=== PATIENT | male | born 1950 | race Caucasian/White ===

== ENCOUNTER 2018-03-16 03:17 | Inpatient (IN) | payer OTHER ==
--- NOTE | 2018-03-16 03:39 | PDOC ---
History of Present Illness - General Chief Complaint: Shortness of Breath Stated Complaint: SOB Time Seen by Provider: 03/16/18 03:31 History Source: Patient Exam Limitations: No Limitations - History of Present Illness Initial Comments: 03/16/18 03:39 This is a 67-year-old male who comes in complaining of 1 day of shortness of breath worse over the last several hours. Patient has a nonproductive cough but otherwise denies any chest pain or abdominal pain. Patient has history of atrial fibrillation. Patient denies history of smoking. Patient denies any fever or chills. Allergies: None Past Medical History: none Social history: Lives with family. No smoking. No alcohol. No illicit drugs. Surgical history: None General: No fevers or chills, no weakness, no weight loss HEENT: No change in vision. No sore throat,. No ear pain CardioVascular: no chest discomfort. No shortness of breath Respiratory:No cough, or wheezing, + shortness of breath Gastrointestinal: no nausea, vomiting, diarrhea or constipation, No rectal bleeding Genitourinary: No dysuria, hematuria, or frequency Musculoskeletal: No joint or muscle pain or swelling Neurologic: No headache, vertigo, dizziness or loss of consciousness Psychiatric: nor depression Skin: No rashes or easy bruising Endocrine: no increased thirst or abnormal weight change Allergic: no skin or latex allergy All other systems reviewed and normal Exam: General: Well-nourished well-developed individual, no acute distress HEENT: Throat: Normal, tonsils normal, no erythema or exudate Neck: Supple, no meningeal signs, no lymphadenopathy Eyes::Pupils equal reactive and round, extraocular motion intact Chest: Nontender to palpation Cardiac: S1-S2 normal, regular rate and rhythm, no murmurs rubs or gallops Respiratory: Lungs with rales bilateral all the way up, + use of accessory muscles with respiration Abdomen: Soft, nondistended, normal bowel sounds, there is no tenderness on palpation diffusely Extremities: Warm, dry, no cyanosis, clubbing, or edema Skin: No rashes Neuro: Alert and oriented x3, CN II - XII intact, nonfocal exam with normal strength, normal sensation, normal reflexes, normal gait, Psych: Normal mood and affect Assessment And plan: This is a 66-year-old male who comes in complaining of shortness of breath. Workup initiated including CBC, comp, cardiac enzymes, EKG , chest x-ray. EKG shows atrial fibrillation at a rate of [address]-T wave changes 03/16/18 04:47 Patient's chest x-ray shows moderate amount of congestive failure heart failure Patient given 40 mg of Lasix IV Patient will be admitted to an inpatient telemetry bed. 03/16/18 05:15 Patient For admission by the hospitalist service Dr. Queen be the admitting doctor 03/16/18 05:24 Past History - Past Medical History Allergies/Adverse Reactions: Allergies Allergy/AdvReac Type Severity Reaction Status Date / Time No Known Allergies Allergy Verified 03/16/18 03:19 Home Medications: Ambulatory Orders Apixaban [Eliquis -] 5 mg PO BID #0 tablet 02/17/13 Losartan Potassium [Cozaar -] 25 mg PO DAILY 09/21/15 Nebivolol HCl [Bystolic] 5 mg PO DAILY 03/16/18 Anemia: No Cardiac Disorders: Yes (AFIB) COPD: No DVT: Yes (R LEG 02/2006) HTN: Yes Hypercholesterolemia: Yes - Surgical History Orthopedic Surgery: Yes (RIGHT MINISCUS TEAR SX) - Suicide/Smoking/Psychosocial Hx Smoking History: Never smoked Have you smoked in the past 12 months: No Number of Cigarettes Smoked Daily: 0 Information on smoking cessation initiated: No Hx Alcohol Use: No Drug/Substance Use Hx: No Substance Use Type: Alcohol *Physical Exam - Vital Signs Last Vital Signs Temp Pulse Resp BP Pulse Ox 98.3 F 69 20 138/65 98 03/16/18 03:21 03/16/18 03:21 03/16/18 03:21 03/16/18 03:21 03/16/18 03:21 Moderate Sedation - Procedure Monitoring Vital Signs: Procedure Monitoring Vital Signs Temperature 98.3 F 03/16/18 03:21 Pulse Rate 69 03/16/18 03:21 Respiratory Rate 20 03/16/18 03:21 Blood Pressure 138/65 03/16/18 03:21 O2 Sat by Pulse Oximetry (%) 98 03/16/18 03:21 ED Treatment Course - LABORATORY CBC & Chemistry Diagram: 03/16/18 04:01 03/16/18 04:01 *DC/Admit/Observation/Transfer Diagnosis at time of Disposition: CHF (congestive heart failure) Qualifiers: Heart failure type: unspecified Heart failure chronicity: acute Qualified Code( s): I50.9 - Heart failure, unspecified - Discharge Dispostion Condition at time of disposition: Stable Decision to Admit order: Yes - Referrals Referrals: Abelardo Yepez MD [Primary Care Provider] - - Patient Instructions - Post Discharge Activity
[2018-03-16 04:22] LABS: BASO % 0.6 % (0-2.0); EOS % 0.3 % (0-4.5); HEMATOCRIT 37.4 % (35.4-49); HEMOGLOBIN 13.4 GM/dL (11.7-16.9); LYMPH % 15.1 % (8-40); MCH 36.1 pg (25.7-33.7); MCHC 35.7 g/dl (32.0-35.9); MEAN CELL VOLUME 101.1 fl (80-96); MONO % 12.7 % (3.8-10.2); NEUT % 71.3 % (42.8-82.8); PLATELET COUNT 147 K/MM3 (134-434); WHITE BLOOD COUNT 6.9 K/mm3 (4.0-10.0)
[2018-03-16 04:26] LABS: URINE APPEARANCE CLEAR; URINE BILIRUBIN NEGATIVE (<2.0 mg/dL); URINE COLOR AMBER; URINE GLUCOSE (UA) NEGATIVE (NEGATIVE); URINE KETONE TRACE (NEGATIVE); URINE LEUK ESTERASE NEGATIVE (NEGATIVE); URINE NITRITE NEGATIVE (NEGATIVE); URINE PROTEIN 2+ (NEGATIVE); URINE UROBILINOGEN 4.0 E.U/dl mg/dL (0.2-1.0)
[2018-03-16 04:40] LABS: CALCIUM OXALATE CRYSTALS RARE /hpf (NONE SEEN); EPI CELLS RARE /HPF (FEW); URINE BACTERIA FEW /hpf (NONE SEEN); URINE HYALINE CAST 1 /lpf; URINE MUCUS FEW
[2018-03-16] MEDS ORDERED: FUROSEMIDE 40 MG/4 ML INJECTABLE VIAL IVPUSH ONE ×3 (04:46→14:54)
[2018-03-16] MEDS ORDERED: FUROSEMIDE 40 MG/4 ML INJECTABLE VIAL ONE (04:49)
[2018-03-16 04:58] LABS: CREATININE 1.2 mg/dL (0.55-1.3)
[2018-03-16 04:59] LABS: ALBUMIN 3.4 g/dl (3.4-5.0); CO2 27 mmol/L (21-32)
[2018-03-16 05:07] LABS: INR 1.84 (0.83-1.09); PROTHROMBIN TIME (PATIENT) 21.8 SEC (9.7-13.0)
[2018-03-16 05:12] LABS: ALK PHOS 77 U/L (45-117); ANION GAP 9 MMOL/L (8-16); BILIRUBIN,TOTAL 1.8 mg/dL (0.2-1); BLOOD UREA NITROGEN 14 mg/dL (7-18); CHLORIDE 94 mmol/L (98-107); GLUCOSE,RANDOM 126 mg/dL (74-106); POTASSIUM 4.1 mmol/L (3.5-5.1); SGOT/AST 39 U/L (15-37); SGPT/ALT 39 U/L (13-61); SODIUM 131 mmol/L (136-145); TOT PROT 6.4 g/dl (6.4-8.2)
[2018-03-16 06:29] VITALS: BMI 31.8
--- NOTE | 2018-03-16 08:19 | HP ---
CHIEF COMPLAINT: "Not in tune with my body" PCP: Abelardo Yepez HISTORY OF PRESENT ILLNESS: This is a 67 year old male with PMHx of paroxysmal a.fib, HTN, DVT right leg, nonobstructive CAD, nonischemic cardiomyopathy, who presented to the ED with 2 days of increased shortness of breath. The patient reports he went to an urgent care yesterday and they gave him a medication that made him feel better (cannot recall the medication name). He reports he then began to have worsening shortness of breath and decided to come to the hospital. The patient is also reporting cough with brown sputum x2 weeks as well as wheezing during that time period. He denies any chest pain, but is reporting chills. ER course was notable for: (1) Temp 98.3, pulse 69, BP 138/63, resp 20, O2 98% (2) Chest X-ray with a larger heart, increased fullness of the right hilum with some congestive changes and possible early right perihilar infiltrate. Fluid in the horizontal fissure (3) Na 131, total bili 1.8 (4) BNP 3519 (5) Total bili 1.8, INR 1.84 Recent Travel: denies PAST MEDICAL HISTORY: as above Social History: Smoking: smoked 40 years ago Alcohol: drinks 1 beer/glass of wine per night Drugs: denies Family History: Allergies No Known Allergies Allergy (Verified 03/16/18 03:19) HOME MEDICATIONS: Home Medications Medication Instructions Recorded Apixaban [Eliquis -] 5 mg PO BID #0 tablet 02/17/13 Losartan Potassium [Cozaar -] 25 mg PO DAILY 09/21/15 Nebivolol HCl [Bystolic] 5 mg PO DAILY 03/16/18 REVIEW OF SYSTEMS CONSTITUTIONAL: + chills x2 days Absent: fever, diaphoresis, generalized weakness, malaise, loss of appetite, weight change HEENT: Absent: rhinorrhea, nasal congestion, throat pain, throat swelling, difficulty swallowing, mouth swelling, ear pain, eye pain, visual changes CARDIOVASCULAR: Absent: chest pain, syncope, palpitations, irregular heart rate, lightheadedness , peripheral edema RESPIRATORY: + cough with brown sputum x2 weeks. Increase in shortness of breath for 2 days. Absent: dyspnea with exertion, orthopnea, wheezing, stridor, hemoptysis GASTROINTESTINAL: Absent: abdominal pain, abdominal distension, nausea, vomiting, diarrhea, constipation, melena, hematochezia GENITOURINARY: Absent: dysuria, frequency, urgency, hesitancy, hematuria, flank pain, genital pain MUSCULOSKELETAL: Absent: myalgia, arthralgia, joint swelling, back pain, neck pain SKIN: Absent: rash, itching, pallor HEMATOLOGIC/IMMUNOLOGIC: Absent: easy bleeding, easy bruising, lymphadenopathy, frequent infections ENDOCRINE: Absent: unexplained weight gain, unexplained weight loss, heat intolerance, cold intolerance NEUROLOGIC: Absent: headache, focal weakness or paresthesias, dizziness, unsteady gait, seizure, mental status changes, bladder or bowel incontinence PSYCHIATRIC: Absent: anxiety, depression, suicidal or homicidal ideation, hallucinations. PHYSICAL EXAMINATION Vital Signs - 24 hr 03/16/18 03/16/18 03/16/18 03:21 03:57 03:59 Temperature 98.3 F Pulse Rate 69 104 H Pulse Rate [ 104 H Left] Respiratory 20 22 H Rate Blood Pressure 138/65 Blood Pressure 136/81 [Right] O2 Sat by Pulse 98 98 98 Oximetry (%) 03/16/18 03/16/18 04:56 06:13 Temperature 100.6 F H Pulse Rate 93 H Pulse Rate [ 103 H Left] Respiratory 26 H 22 H Rate Blood Pressure 140/73 Blood Pressure 132/74 [Right] O2 Sat by Pulse 98 98 Oximetry (%) GENERAL: Awake, alert, and fully oriented, in no acute distress. HEAD: Normal with no signs of trauma. EYES: Pupils equal, round and reactive to light, extraocular movements intact, sclera anicteric, conjunctiva clear. No lid lag. EARS, NOSE, THROAT: Ears normal, nares patent, oropharynx clear without exudates. Moist mucous membranes. NECK: Normal range of motion, supple without lymphadenopathy, JVD, or masses. LUNGS: B/l wheezing. HEART: Regular rate and rhythm, normal S1 and S2 ABDOMEN: Soft, nontender, not distended, normoactive bowel sounds, no guarding, no rebound, no masses. No hepatomegaly or splenomegaly. MUSCULOSKELETAL: Normal range of motion at all joints. No bony deformities or tenderness. No CVA tenderness. UPPER EXTREMITIES: 2+ pulses, warm, well-perfused. No cyanosis. No clubbing. No peripheral edema. LOWER EXTREMITIES: 2+ pulses, warm, well-perfused. No calf tenderness. No peripheral edema. NEUROLOGICAL: Cranial nerves II-XII intact. Normal speech. Normal gait. PSYCHIATRIC: Cooperative. Good eye contact. Appropriate mood and affect. SKIN: Warm, dry, normal turgor, no rashes or lesions noted, normal capillary refill. Laboratory Results - last 24 hr 03/16/18 03/16/18 03/16/18 03:40 03:45 03:45 WBC RBC Hgb Hct MCV MCH MCHC RDW Plt Count MPV Absolute Neuts (auto) Neutrophils % Lymphocytes % Monocytes % Eosinophils % Basophils % Nucleated RBC % PT with INR INR Sodium Potassium Chloride Carbon Dioxide Anion Gap BUN Creatinine Creat Clearance w eGFR Random Glucose Calcium Total Bilirubin AST ALT Alkaline Phosphatase Creatine Kinase Cancelled Creatine Kinase Index CK-MB (CK-2) Troponin I 0.02 Cancelled B-Natriuretic Peptide Total Protein Albumin Urine Color Urine Appearance Urine pH Ur Specific Bison Urine Protein Urine Glucose (UA) Urine Ketones Urine Blood Urine Nitrite Urine Bilirubin Urine Urobilinogen Ur Leukocyte Esterase Urine WBC (Auto) Urine RBC (Auto) Ur Epithelial Cells Calcium Oxalate Crystal Urine Bacteria Hyaline Casts Urine Mucus 03/16/18 03/16/18 03/16/18 03:45 04:01 04:01 WBC 6.9 RBC 3.70 L Hgb 13.4 Hct 37.4 MCV 101.1 H MCH 36.1 H MCHC 35.7 RDW 14.0 Plt Count 147 MPV 10.0 Absolute Neuts (auto) 4.9 Neutrophils % 71.3 Lymphocytes % 15.1 Monocytes % 12.7 H Eosinophils % 0.3 Basophils % 0.6 Nucleated RBC % 0 PT with INR INR Sodium 131 L Potassium 4.1 Chloride 94 L Carbon Dioxide 27 Anion Gap 9 BUN 14 Creatinine 1.2 Creat Clearance w eGFR > 60 Random Glucose 126 H Calcium 8.0 L Total Bilirubin 1.8 H AST 39 H ALT 39 Alkaline Phosphatase 77 Creatine Kinase 597 H Creatine Kinase Index 0.3 CK-MB (CK-2) 2.0 Troponin I < 0.02 B-Natriuretic Peptide Total Protein 6.4 Albumin 3.4 Urine Color Patricia Urine Appearance Clear Urine pH 6.0 Ur Specific Bison 1.023 Urine Protein 2+ H Urine Glucose (UA) Negative Urine Ketones Trace H Urine Blood 2+ H Urine Nitrite Negative Urine Bilirubin Negative Urine Urobilinogen 4.0 e.u/dl Ur Leukocyte Esterase Negative Urine WBC (Auto) 3 Urine RBC (Auto) 21 Ur Epithelial Cells Rare Calcium Oxalate Crystal Rare Urine Bacteria Few Hyaline Casts 1 Urine Mucus Few 03/16/18 03/16/18 04:01 04:01 WBC RBC Hgb Hct MCV MCH MCHC RDW Plt Count MPV Absolute Neuts (auto) Neutrophils % Lymphocytes % Monocytes % Eosinophils % Basophils % Nucleated RBC % PT with INR 21.80 H INR 1.84 H Sodium Potassium Chloride Carbon Dioxide Anion Gap BUN Creatinine Creat Clearance w eGFR Random Glucose Calcium Total Bilirubin AST ALT Alkaline Phosphatase Creatine Kinase Creatine Kinase Index CK-MB (CK-2) Troponin I B-Natriuretic Peptide 3519.6 H Total Protein Albumin Urine Color Urine Appearance Urine pH Ur Specific Bison Urine Protein Urine Glucose (UA) Urine Ketones Urine Blood Urine Nitrite Urine Bilirubin Urine Urobilinogen Ur Leukocyte Esterase Urine WBC (Auto) Urine RBC (Auto) Ur Epithelial Cells Calcium Oxalate Crystal Urine Bacteria Hyaline Casts Urine Mucus Assessment: This is a 67 year old male with PMHx of paroxysmal a.fib, HTN, DVT right leg, nonobstructive CAD, nonischemic cardiomyopathy, who presented to the ED with 2 days of increased shortness of breath. Plan: 1) Acute COPD exacerbation - Started on Solu-medrol. Given 125mg now. Will continue Solu-medrol 40mg q8h IVP - O2 via NC prn - Duonebs prn 2) Community acquired pneumonia - Chest X-ray with possible early perihilar infiltrate - Given the patient had low grade temp 100.8 this morning, will start Ceftriaxone and Azithromycin - F/u sputum culture - F/u urine legionella Ag - F/u blood cultures - Monitor for further fevers 3) Acute on chronic LV systolic failure with nonischemic cardiomyopathy - Given two doses of lasix today - Discussed with Dr. Quintero, will hold off on giving more lasix for now - Increased Bystolic to 10mg po daily 4) Elevated total bili - Also with elevated INR 1.84 - Patient reports drinking alcohol daily. F/u liver ultrasound to evaluate for cirrhosis - Trend LFTs - Monitor for s&s of withdrawal. No evidence of acute withdrawal now 5) Paroxysmal A.fib - Continue Eliquis - Increased Bystolic for better heart rate control 6) HTN - Continue Cozaar 7) F/E/N: - Hyponatremia: continue to trend - Sodium controlled diet - Monitor electrolytes 8) Prophylaxis: - Continue Eliquis 9) Dispo: - Requires continued inpatient care CODE STATUS: FULL CODE Visit type - Emergency Visit Emergency Visit: Yes ED Registration Date: 03/16/18 Care time: The patient presented to the Emergency Department on the above date and was hospitalized for further evaluation of their emergent condition. - New Patient This patient is new to me today: Yes Date on this admission: 03/16/18 - Critical Care Critical Care patient: No
[2018-03-16] MEDS ORDERED: CEFTRIAXONE 1 GM in DEXTROSE 5%-WATER - 50 ML IVPB ONE (08:30)
[2018-03-16] MEDS ORDERED: CEFTRIAXONE 1 G/50 ML PREMIX 50 ML IVPB ONE (08:30)
[2018-03-16] MEDS ORDERED: AZITHROMYCIN IVPB 500 MG/250 ML BAG IVPB ONE (08:45)
[2018-03-16] MEDS: LOSARTAN POTASSIUM 25 MG TABLET PO SCH (09:03)
[2018-03-16] MEDS: APIXABAN 5 MG TABLET PO SCH ×2 (09:03→21:27)
[2018-03-16] MEDS ORDERED: NEBIVOLOL 5 MG TABLET (FP) PO SCH (10:00)
[2018-03-16 10:22] LABS: CHOLESTEROL 120 mg/dl; HDL CHOLESTEROL 46 mg/dl (29-89); LDL CHOLESTEROL (ONLY DFH) 63 mg/dl (0-100); TRIGLYCERIDES 55 mg/dl (35-160)
[2018-03-16] MEDS: ALBUTEROL SO4 2.5/IPRATROPIUM 0.5 INH SOL 3 ML VIAL.NEB. NEB PRN ×2 (10:25→19:04)
[2018-03-16] MEDS ORDERED: methylPREDNISolone NA SUCC 125 MG/2 ML VIAL IVPB ONE (13:30)
--- NOTE | 2018-03-16 13:34 | CON.CARD ---
Consult Consult Specialty:: Cardiology Referred by:: Hospitalist Medicine/Abelardo Yepez MD Reason for Consultation:: Afib and diastolic failure - History of Present Illness Chief Complaint: Dyspnea, cough, wheeze History of Present Illness: 67 yo M with a history of paroxysmal Afib on Eliquis [id number], nonobstructive CAD, nonischemic cardiomyopathy with improved LV fxn (mild) presented to the ER with progressive dypnea, orthopnea, cough productive of yellow-brown sputum, wheeze without chest pain, near or true syncope, palpitations, PND or LE edema, found in rapid afib, asymptomatic. Admits to salt intake, denies medication noncompliance or NSAID use. PMH: Paroxymal Afib PSH: Bilateral hip replacement, Right knee replacement Meds: Carvedilol 6.25 qd, Losartan 25 qd, Eliquis 5 bid ALL: NKDA Social: denies drug or cigarette use, does use alcohol - History Source History Provided By: Patient Limitations to Obtaining History: No Limitations - Past Medical History Cardio/Vascular: Yes: AFIB, HTN - Alcohol/Substance Use Hx Alcohol Use: Yes - Smoking History Smoking history: Never smoked Have you smoked in the past 12 months: No Aproximately how many cigarettes per day: 0 Home Medications - Allergies Allergies/Adverse Reactions: Allergies Allergy/AdvReac Type Severity Reaction Status Date / Time No Known Allergies Allergy Verified 03/16/18 03:19 - Home Medications Home Medications: Ambulatory Orders Apixaban [Eliquis -] 5 mg PO BID #0 tablet 02/17/13 Losartan Potassium [Cozaar -] 25 mg PO DAILY 09/21/15 Allopurinol [Zyloprim -] 600 mg PO BID 03/16/18 Nebivolol HCl [Bystolic] 5 mg PO DAILY 03/16/18 Review of Systems - Review of Systems Respiratory: reports: Cough, SOB, Wheezing Vital Signs: Vital Signs Temperature 98.7 F 03/16/18 13:15 Pulse Rate 99 H 03/16/18 13:15 Respiratory Rate 22 H 03/16/18 13:15 Blood Pressure 136/61 03/16/18 13:15 O2 Sat by Pulse Oximetry (%) 96 03/16/18 09:19 Constitutional: Yes: No Distress, Calm Neck: Yes: Supple Respiratory: Yes: Regular, Diminished, On Nasal O2 Gastrointestinal: Yes: Normal Bowel Sounds, Soft, Abdomen, Obese Cardiovascular: Yes: Tachycardia, Pulse Irregular JVD: No Carotid Bruit: No Heart Sounds: Yes: S1, S2 Murmur: Yes: Systolic Murmur, Grade 1 Edema: No - Other Data Labs, Other Data: CBC, BMP 03/16/18 04:01 03/16/18 04:01 INR, PTT INR 1.84 (0.83-1.09) H 03/16/18 04:01 Troponin, BNP 03/16/18 03/16/18 03/16/18 03:40 03:45 04:01 Troponin I 0.02 Cancelled < 0.02 B-Natriuretic Peptide 03/16/18 03/16/18 04:01 10:00 Troponin I 0.03 B-Natriuretic Peptide 3519.6 H Troponin, BNP 03/16/18 03/16/18 03/16/18 03:40 03:45 04:01 Troponin I 0.02 Cancelled < 0.02 B-Natriuretic Peptide 03/16/18 03/16/18 04:01 10:00 Troponin I 0.03 B-Natriuretic Peptide 3519.6 H Afib @ 114 Ejection Fraction %: LVEF > or = 40 % Imaging - Results Chest X-ray: Report Reviewed (Congestion with right hilar fullness, ? infiltrate ) Problem List - Problems (1) COPD (chronic obstructive pulmonary disease) Code(s): J44.9 - CHRONIC OBSTRUCTIVE PULMONARY DISEASE, UNSPECIFIED Qualifiers: COPD type: COPD with acute exacerbation Qualified Code(s): J44.1 - Chronic obstructive pulmonary disease with (acute) exacerbation (2) CHF (congestive heart failure) Code(s): I50.9 - HEART FAILURE, UNSPECIFIED Qualifiers: Heart failure type: combined systolic and diastolic Heart failure chronicity: acute on chronic Qualified Code(s): I50.43 - Acute on chronic combined systolic (congestive) and diastolic (congestive) heart failure (3) Atrial fibrillation with RVR Code(s): I48.91 - UNSPECIFIED ATRIAL FIBRILLATION (4) Hypertension Code(s): I10 - ESSENTIAL (PRIMARY) HYPERTENSION Qualifiers: Hypertension type: essential hypertension Qualified Code(s): I10 - Essential (primary) hypertension Assessment/Plan 1. Recurrent paroxysmal atrial fibrillation with rapid ventricular response [id number] on NOAC 2. Acute on chronic LV systolic failure (mild) with nonischemic cardiomyopathy 3. Non-obstructive CAD, angina pectoris 4. AE COPD +/- PNA 5. HTN PLAN: 1. Increase Bystolic 10 qd for rate-control, continue losartan 25 qd, Eliquis 5 bid 2. BD, steroids, empiric abx course, FIO2 to maintain saO2 3. Thank you for consultative opportunity
[2018-03-16] MEDS: NEBIVOLOL 10 MG TABLET (FP) PO SCH (16:21)
[2018-03-16] MEDS: methylPREDNISolone NA SUCC 40 MG/1 ML VIAL IVPUSH SCH (19:50)
[2018-03-16] MEDS: guaiFENesin 200 MG/10 ML 10 ML UNIT-DOSE CUPS PO PRN (21:45)
[2018-03-17] MEDS: methylPREDNISolone NA SUCC 40 MG/1 ML VIAL IVPUSH SCH ×2 (01:00→09:14)
[2018-03-17 06:53] LABS: ALBUMIN 3.1 g/dl (3.4-5.0); ALK PHOS 77 U/L (45-117); ANION GAP 8 MMOL/L (8-16); BILIRUBIN,TOTAL 0.5 mg/dL (0.2-1); BLOOD UREA NITROGEN 28 mg/dL (7-18); CALCIUM 8.2 mg/dL (8.5-10.1); CHLORIDE 97 mmol/L (98-107); CO2 29 mmol/L (21-32); CREATININE 1.2 mg/dL (0.55-1.3); GLUCOSE,RANDOM 168 mg/dL (74-106); MAGNESIUM 2.7 mg/dL (1.8-2.4); SGOT/AST 35 U/L (15-37); SGPT/ALT 44 U/L (13-61); SODIUM 135 mmol/L (136-145); TOT PROT 6.4 g/dl (6.4-8.2)
--- NOTE | 2018-03-17 07:16 | EKG ---
Test Reason : Blood Pressure : / mmHG Vent. Rate : 114 BPM Atrial Rate : 110 BPM P-R Int : 000 ms QRS Dur : 092 ms QT Int : 338 ms P-R-T Axes : 000 019 024 degrees QTc Int : 465 ms ATRIAL FIBRILLATION WITH RAPID VENTRICULAR RESPONSE ABNORMAL ECG WHEN COMPARED WITH ECG OF 22-SEP-2015 09:16, ATRIAL FIBRILLATION HAS REPLACED SINUS RHYTHM VENT. RATE HAS INCREASED BY 56 BPM Confirmed by FLORA NEGRETE, MULU ([id number]) on 03/17/2018 7:16:33 AM Referred By: MD JAQUEZ Confirmed By:MULU HINSE MD
--- NOTE | 2018-03-17 08:09 | PN ---
Physical Exam: SUBJECTIVE: Patient seen and examined sitting on edge of bed. Denies palpitaitons. SOB is improved. Has periods of coughing. Devoted to fitness, spinning, weight lifting. Takes powder supplements. Denies steroid use. OBJECTIVE: Vital Signs Period Temp Pulse Resp BP Sys/Baron Pulse Ox Last 24 Hr 97.6 F-98.7 F 88-106 19-22 104-136/51-67 93-97 GENERAL: The patient is awake, alert, and fully oriented, in no acute distress. Large, developed upper chest and arms. LUNGS: Breath sounds equal, clear to auscultation bilaterally, no wheezes, no crackles, no accessory muscle use. HEART: Regular rate and rhythm, S1, S2 without murmur, rub or gallop. ABDOMEN: Soft, nontender, nondistended EXTREMITIES: 2+ pulses, warm, well-perfused, no edema. NEUROLOGICAL: Cranial nerves II through XII grossly intact. Normal speech, steady gait Laboratory Results - last 24 hr 03/16/18 03/16/18 03/16/18 09:50 10:00 10:00 D-Dimer Sodium Potassium Chloride Carbon Dioxide Anion Gap BUN Creatinine Creat Clearance w eGFR Random Glucose Hemoglobin A1c % 5.8 Calcium Magnesium 1.9 Total Bilirubin AST ALT Alkaline Phosphatase Troponin I Total Protein Albumin Triglycerides 55 D Cholesterol 120 Total LDL Cholesterol 63 HDL Cholesterol 46 03/16/18 03/16/18 03/16/18 10:00 14:30 14:30 D-Dimer 1821 H Sodium Potassium Chloride Carbon Dioxide Anion Gap BUN Creatinine Creat Clearance w eGFR Random Glucose Hemoglobin A1c % Calcium Magnesium Total Bilirubin AST ALT Alkaline Phosphatase Troponin I 0.03 0.03 Total Protein Albumin Triglycerides Cholesterol Total LDL Cholesterol HDL Cholesterol 03/17/18 05:30 D-Dimer Sodium 135 L Potassium 4.0 Chloride 97 L Carbon Dioxide 29 Anion Gap 8 BUN 28 H Creatinine 1.2 Creat Clearance w eGFR > 60 Random Glucose 168 H Hemoglobin A1c % Calcium 8.2 L Magnesium 2.7 H Total Bilirubin 0.5 AST 35 ALT 44 Alkaline Phosphatase 77 Troponin I Total Protein 6.4 Albumin 3.1 L Triglycerides Cholesterol Total LDL Cholesterol HDL Cholesterol Active Medications Generic Name Dose Route Start Last Admin Trade Name Freq PRN Reason Stop Dose Admin Albuterol/Ipratropium 1 amp 03/16/18 09:55 03/16/18 19:04 Duoneb - NEB 1 amp Q4H PRN Administration SHORTNESS OF BREATH Apixaban 5 mg 03/16/18 10:00 03/16/18 21:27 Eliquis - PO 5 mg BID IMELDA Administration Guaifenesin 10 ml 03/16/18 20:55 03/16/18 21:45 Robitussin - PO 10 ml Q6H PRN Administration COUGH Losartan Potassium 25 mg 03/16/18 10:00 03/16/18 09:03 Cozaar - PO 25 mg DAILY IMELDA Administration Methylprednisolone Sodium Succinate 40 mg 03/16/18 19:30 03/17/18 01:00 Solu-Medrol - IVPUSH 40 mg Q8H-IV IMELDA Administration Nebivolol 10 mg 03/16/18 15:15 03/16/18 16:21 Bystolic - PO 5 mg DAILY IMELDA Administration ASSESSMENT/PLAN: 67 year-old male with PMH significant for HTN, paroxysmal afib with h/o cardioversion x 2 on Eliquis, DVT right leg, nonobstructive CAD, systolic heart failure, admitted for CAP and CHF exacerbation. Community acquired pneumonia --03/16 CXR: early right perihilar infiltrate --febrile 100.6 on admission, afebrile since, no leukocytosis --still with cough productive of putty-colored sputum --SpO2 97% on room air at rest, 95% on room air with ambulation --continue empiric ceftriaxone and azithromycin --cultures pending --taper steroids Paroxysmal atrial fibrillation with RVR --cardioverted 2012, 2015 --ECG on admission afib @ 114, today afib @95 --continue increased Bystolic 10mg for rate control --continue Eliquis Acute on chronic systolic failure Nonischemic cardiomyopathy --03/16 CXR: congestive changes, fluid in horizontal fissure --received 2 doses IV Lasix on 03/16 --appears euvolemic, no further Lasix for now --daily weights Elevated total bili, resolved --INR 1.8-->0.5 today Hypertension --BP stable --continue losartan Hyponatremia --resolved FEN Fluids: PO intake adequate Electrolytes: replete as indicated DVT prophylaxis: on Eliquis Dispo: continues to require inpatient care. If afebrile and no leukocytosis likely discharge tomorrow. Full code. Visit type - Emergency Visit Emergency Visit: Yes ED Registration Date: 03/16/18 Care time: The patient presented to the Emergency Department on the above date and was hospitalized for further evaluation of their emergent condition. - New Patient This patient is new to me today: Yes Date on this admission: 03/17/18 - Critical Care Critical Care patient: No
[2018-03-17 08:25] LABS: HEMATOCRIT 39.5 % (35.4-49); HEMOGLOBIN 13.1 GM/dl (11.7-16.9); LYMPH % 9.9 % (8-40); MCH 34.4 pg (25.7-33.7); MCHC 33.2 g/dl (32.0-35.9); MEAN CELL VOLUME 103.8 fl (80-96); MEAN PLT VOLUME 9.6 fl (7.5-11.1); MONO % 5.2 % (3.8-10.2); NEUT % 84.9 % (42.8-82.8); PLATELET COUNT 168 K/MM3 (134-434); RDW 13.4 % (11.9-15.9); WHITE BLOOD COUNT 5.1 K/mm3 (4.0-10.8)
[2018-03-17] MEDS: NEBIVOLOL 10 MG TABLET (FP) PO SCH (09:13)
[2018-03-17] MEDS: APIXABAN 5 MG TABLET PO SCH ×2 (09:14→21:01)
[2018-03-17] MEDS: LOSARTAN POTASSIUM 25 MG TABLET PO SCH (09:14)
[2018-03-17] MEDS: AZITHROMYCIN IVPB 500 MG/250 ML BAG IVPB SCH (09:16)
[2018-03-17] MEDS: CEFTRIAXONE 1 G/50 ML PREMIX 50 ML IVPB SCH (09:16)
[2018-03-17] MEDS: guaiFENesin 200 MG/10 ML 10 ML UNIT-DOSE CUPS PO PRN ×2 (09:17→22:40)
[2018-03-17 09:44] LABS: INR 1.71 (0.82-1.09); PROTHROMBIN TIME (PATIENT) 18.9 SEC (10.2-13.0)
[2018-03-17] MEDS: ALBUTEROL SO4 2.5/IPRATROPIUM 0.5 INH SOL 3 ML VIAL.NEB. NEB SCH ×2 (13:00→17:01)
--- NOTE | 2018-03-17 13:42 | PN ---
Progress Note, Physician History of Present Illness: Dypnea, orthopnea, cough productive of yellow-brown sputum, wheeze and rate- control of afib has improved. PMH: Paroxymal Afib PSH: Bilateral hip replacement, Right knee replacement Meds: Carvedilol 6.25 qd, Losartan 25 qd, Eliquis 5 bid ALL: NKDA Social: denies drug or cigarette use, does use alcohol - Current Medication List Current Medications: Active Medications Albuterol/Ipratropium (Duoneb -) 1 amp NEB QIDR IMELDA Apixaban (Eliquis -) 5 mg PO BID COUNTS INCLUDE 234 BEDS AT THE [facility] Last Admin: 03/17/18 09:14 Dose: 5 mg Guaifenesin (Robitussin -) 10 ml PO Q6H PRN PRN Reason: COUGH Last Admin: 03/17/18 09:17 Dose: 10 ml Ceftriaxone Sodium (Ceftriaxone 1 Gm-D5w Bag) 50 mls @ 100 mls/hr IVPB DAILY COUNTS INCLUDE 234 BEDS AT THE [facility]; Protocol Last Admin: 03/17/18 09:16 Dose: 100 mls/hr Azithromycin (Zithromax 500mg Ivpb (Pre-Docked)) 500 mg in 250 mls @ 250 mls/ hr IVPB DAILY COUNTS INCLUDE 234 BEDS AT THE [facility] Last Admin: 03/17/18 09:16 Dose: 250 mls/hr Losartan Potassium (Cozaar -) 25 mg PO DAILY COUNTS INCLUDE 234 BEDS AT THE [facility] Last Admin: 03/17/18 09:14 Dose: 25 mg Nebivolol (Bystolic -) 10 mg PO DAILY COUNTS INCLUDE 234 BEDS AT THE [facility] Last Admin: 03/17/18 09:13 Dose: 10 mg Prednisone (Deltasone -) 40 mg PO ONCE ONE Stop: 03/18/18 10:01 - Objective Vital Signs: Vital Signs Temperature 97.6 F 03/17/18 06:00 Pulse Rate 88 03/17/18 06:00 Respiratory Rate 18 03/17/18 08:29 Blood Pressure 115/65 03/17/18 06:00 O2 Sat by Pulse Oximetry (%) 97 03/17/18 08:29 Constitutional: Yes: No Distress, Calm Neck: Yes: Supple Cardiovascular: Yes: Pulse Irregular Respiratory: Yes: Regular, Diminished, On Nasal O2 Gastrointestinal: Yes: Normal Bowel Sounds, Soft Edema: No Labs: CBC, BMP 03/17/18 07:08 03/17/18 05:30 INR, PTT INR 1.71 (0.82-1.09) H D 03/17/18 07:08 - ....Imaging EKG: Report Reviewed (Tele: Rate-controlled afib) Problem List - Problems (1) COPD (chronic obstructive pulmonary disease) Code(s): J44.9 - CHRONIC OBSTRUCTIVE PULMONARY DISEASE, UNSPECIFIED Qualifiers: COPD type: COPD with acute exacerbation Qualified Code(s): J44.1 - Chronic obstructive pulmonary disease with (acute) exacerbation (2) CHF (congestive heart failure) Code(s): I50.9 - HEART FAILURE, UNSPECIFIED Qualifiers: Heart failure type: combined systolic and diastolic Heart failure chronicity: acute on chronic Qualified Code(s): I50.43 - Acute on chronic combined systolic (congestive) and diastolic (congestive) heart failure (3) Atrial fibrillation with RVR Code(s): I48.91 - UNSPECIFIED ATRIAL FIBRILLATION (4) Hypertension Code(s): I10 - ESSENTIAL (PRIMARY) HYPERTENSION Qualifiers: Hypertension type: essential hypertension Qualified Code(s): I10 - Essential (primary) hypertension Assessment/Plan 1. Recurrent paroxysmal atrial fibrillation with rapid ventricular response [id number] on NOAC 2. Acute on chronic LV systolic failure (mild) with nonischemic cardiomyopathy 3. Non-obstructive CAD, angina pectoris 4. AE COPD +/- PNA 5. HTN PLAN: 1. Increased Bystolic 10 qd for rate-control, continue losartan 25 qd, Eliquis 5 bid 2. BD, oral steroids, empiric abx course, FIO2 to maintain saO2
--- NOTE | 2018-03-17 15:03 | ECHO ---
Name: DANNAJEANNIE Exam:Adult Echocardiogram Study Date: 03/17/2018 12:26 PM Age: 67 yrs Reason For Study: CHF Height: 70 in Weight: 225 lb BSA: 2.2 m2 MMode/2D Measurements & Calculations IVSd: 1.1 cm Ao root diam: 3.2 cm LVIDd: 4.6 cm LA dimension: 4.4 cm LVIDs: 3.0 cm LVPWd: 0.96 cm EDV(Teich): 97.9 ml ESV(Teich): 33.7 ml Doppler Measurements & Calculations MV E max chau: 88.5 cm/sec MV dec slope: 596.5 cm/sec2 MR max chau: 387.3 cm/sec TR max chau: 189.1 cm/sec MR max P.0 mmHg TR max P.4 mmHg Procedure A complete two-dimensional transthoracic echocardiogram was performed (2D, M-mode, Doppler and color flow Doppler). The study was technically adequate with some images being suboptimal in quality. Left Ventricle Left ventricular systolic function is moderately reduced. Ejection Fraction = 35-40%. There is modera te global hypokinesis of the left ventricle. Right Ventricle The right ventricle is normal in size and function. Atria The left atrium is mildly dilated. Right atrium not well visualized. Mitral Valve The mitral valve is normal in structure and function. There is mild mitral regurgitation. Tricuspid Valve The tricuspid valve is normal in structure and function. There is trace tricuspid regurgitation. Ther e was insufficient TR detected to calculate RV systolic pressure. Aortic Valve The aortic valve is normal in structure and function. Pulmonic Valve The pulmonic valve is not well visualized. Great Vessels The aortic root is normal size. Pericardium/Pleura There is no pericardial effusion. Interpretation Summary Left ventricular systolic function is moderately reduced. The right ventricle is normal in size and function. The left atrium is mildly dilated. The aortic valve is normal in structure and function. Ranjeet You 03/17/2018 03:02 PM
[2018-03-18] MEDS: ALBUTEROL SO4 2.5/IPRATROPIUM 0.5 INH SOL 3 ML VIAL.NEB. NEB SCH ×3 (00:03→12:40)
[2018-03-18] MEDS: predniSONE 20 MG TABLET (UD) PO ONE ×2 (10:04→13:39)
[2018-03-18] MEDS: LOSARTAN POTASSIUM 25 MG TABLET PO SCH (10:05)
[2018-03-18] MEDS: CEFTRIAXONE 1 G/50 ML PREMIX 50 ML IVPB SCH (10:05)
[2018-03-18] MEDS: APIXABAN 5 MG TABLET PO SCH ×2 (10:05→21:20)
[2018-03-18] MEDS: AZITHROMYCIN IVPB 500 MG/250 ML BAG IVPB SCH (10:05)
[2018-03-18] MEDS: NEBIVOLOL 10 MG TABLET (FP) PO SCH (10:05)
--- NOTE | 2018-03-18 14:11 | PN ---
Physical Exam: SUBJECTIVE: Patient seen and examined. Reports improvement in cough and SOB. Denies chest pain, palpitations. Nurse reports HR on tele into 140s this am. Now 120s. OBJECTIVE: Vital Signs 3 Period Temp Pulse Resp BP Sys/Baron Pulse Ox Last 24 Hr 97.4 F-98.5 F 69-102 18-22 104-126/57-87 94-98 GENERAL: The patient is awake, alert, and fully oriented, in no acute distress. HEAD: Normal with no signs of trauma. EYES: PERRL, extraocular movements intact, sclera anicteric, conjunctiva clear. No ptosis. ENT: Ears normal, nares patent, oropharynx clear without exudates, moist mucous membranes. NECK: Trachea midline, full range of motion, supple. LUNGS: Breath sounds equal, clear to auscultation bilaterally, no wheezes, no crackles, no accessory muscle use. HEART: Irregular rate and rhythm, S1, S2 without murmur, rub or gallop. +tachy ABDOMEN: Soft, nontender, nondistended, normoactive bowel sounds, no guarding, no rebound, no hepatosplenomegaly, no masses. EXTREMITIES: 2+ pulses, warm, well-perfused, no edema. NEUROLOGICAL: Cranial nerves II through XII grossly intact. Normal speech, gait not observed. PSYCH: Normal mood, normal affect. SKIN: Warm, dry, normal turgor, no rashes or lesions noted Active Medications 3 Generic Name Dose Route Start Last Admin Trade Name Freq PRN Reason Stop Dose Admin Albuterol/Ipratropium 1 amp 03/17/18 12:00 03/18/18 12:40 Duoneb - NEB 1 amp QIDR IMELDA Administration Apixaban 5 mg 03/16/18 10:00 03/18/18 10:05 Eliquis - PO 5 mg BID IMELDA Administration Guaifenesin 10 ml 03/16/18 20:55 03/17/18 22:40 Robitussin - PO 10 ml Q6H PRN Administration COUGH Ceftriaxone Sodium 50 mls @ 100 mls/hr 03/17/18 10:00 03/18/18 10:05 Ceftriaxone 1 Gm-D5w Bag IVPB 100 mls/hr DAILY IMELDA Administration Protocol Azithromycin 500 mg in 250 mls @ 250 mls/hr 03/17/18 10:00 03/18/18 10:05 Zithromax 500mg Ivpb (Pre-Docked) IVPB 250 mls/hr DAILY IMELDA Administration Losartan Potassium 25 mg 03/16/18 10:00 03/18/18 10:05 Cozaar - PO 25 mg DAILY IMELDA Administration Nebivolol 10 mg 03/16/18 15:15 03/18/18 10:05 Bystolic - PO 10 mg DAILY IMELDA Administration ASSESSMENT/PLAN: 67 year-old male with PMH significant for HTN, paroxysmal afib with h/o cardioversion x 2 on Eliquis, DVT right leg, nonobstructive CAD, systolic heart failure, admitted for CAP and CHF exacerbation. Community Acquired Pneumonia - cont azithromycin/ceftriaxone - no wheezing on exam. will dc albuterol due to tachycardia - no need for further prednisone unless wheezing recurs paroxysmal afib - cont home bystolic - dc albuterol, can worsen tachycardia. If no improvement in HR then consider increasing bystolic - cardiology consult - cont eliquis Acute on chronic systolic failure Nonischemic cardiomyopathy - s/p 2 doses lasxi 03/16 - appears euvolemic, no further lasix - weight 03/16 106.59, 03/17 101.8, 03/18 102.1; cont to monitor daily weights HTN - SBP stable in 100s - cont bystolic, losartan FEN - tolerating po fluids - BMP in am - low sodium diet as controlled Dispo: Pt continues to require inpatient care. Possible DC tomorrow if HR improves off albuterol. Visit type - Emergency Visit Emergency Visit: Yes ED Registration Date: 03/16/18 Care time: The patient presented to the Emergency Department on the above date and was hospitalized for further evaluation of their emergent condition. - New Patient This patient is new to me today: Yes Date on this admission: 03/18/18 - Critical Care Critical Care patient: No - Discharge Referral Referred to [facility] Med P.C.: No
[2018-03-18] MEDS: IPRATROPIUM BR 0.02% 0.5 MG/2.5 ML VIAL.NEB. NEB SCH ×2 (17:19→19:44)
--- NOTE | 2018-03-18 18:52 | PN ---
Progress Note, Physician History of Present Illness: Dypnea, orthopnea, cough productive of yellow-brown sputum, wheeze has improved , but rate-control of afib is suboptimal despite uptitration of Bystolic. PMH: Paroxymal Afib PSH: Bilateral hip replacement, Right knee replacement Meds: Carvedilol 6.25 qd, Losartan 25 qd, Eliquis 5 bid ALL: NKDA Social: denies drug or cigarette use, does use alcohol - Current Medication List Current Medications: Active Medications Apixaban (Eliquis -) 5 mg PO BID [facility] Last Admin: 03/18/18 10:05 Dose: 5 mg Diltiazem HCl (Cardizem Cd -) 120 mg PO DAILY [facility] Guaifenesin (Robitussin -) 10 ml PO Q6H PRN PRN Reason: COUGH Last Admin: 03/17/18 22:40 Dose: 10 ml Ceftriaxone Sodium (Ceftriaxone 1 Gm-D5w Bag) 50 mls @ 100 mls/hr IVPB DAILY [facility]; Protocol Last Admin: 03/18/18 10:05 Dose: 100 mls/hr Azithromycin (Zithromax 500mg Ivpb (Pre-Docked)) 500 mg in 250 mls @ 250 mls/ hr IVPB DAILY [facility] Last Admin: 03/18/18 10:05 Dose: 250 mls/hr Ipratropium [place] (Atrovent 0.02% Nebulizer -) 1 amp NEB RQID [facility] Last Admin: 03/18/18 17:19 Dose: 1 amp Losartan Potassium (Cozaar -) 25 mg PO DAILY [facility] Last Admin: 03/18/18 10:05 Dose: 25 mg - Objective Vital Signs: Vital Signs Temperature 97.9 F 03/18/18 13:59 Pulse Rate 98 H 03/18/18 13:59 Respiratory Rate 19 03/18/18 13:59 Blood Pressure 104/70 03/18/18 13:59 O2 Sat by Pulse Oximetry (%) 95 03/18/18 13:59 Constitutional: Yes: No Distress, Calm Neck: Yes: Supple Cardiovascular: Yes: Tachycardia, Pulse Irregular Respiratory: Yes: Regular, Diminished Gastrointestinal: Yes: Normal Bowel Sounds, Soft Edema: No Labs: CBC, BMP 03/17/18 07:08 03/17/18 05:30 INR, PTT INR 1.71 (0.82-1.09) H D 12/24/18 07:08 - ....Imaging EKG: Report Reviewed (Tele: Rapid afib) Problem List - Problems (1) COPD (chronic obstructive pulmonary disease) Code(s): J44.9 - CHRONIC OBSTRUCTIVE PULMONARY DISEASE, UNSPECIFIED Qualifiers: COPD type: COPD with acute exacerbation Qualified Code(s): J44.1 - Chronic obstructive pulmonary disease with (acute) exacerbation (2) CHF (congestive heart failure) Code(s): I50.9 - HEART FAILURE, UNSPECIFIED Qualifiers: Heart failure type: combined systolic and diastolic Heart failure chronicity: acute on chronic Qualified Code(s): I50.43 - Acute on chronic combined systolic (congestive) and diastolic (congestive) heart failure (3) Atrial fibrillation with RVR Code(s): I48.91 - UNSPECIFIED ATRIAL FIBRILLATION (4) Hypertension Code(s): I10 - ESSENTIAL (PRIMARY) HYPERTENSION Qualifiers: Hypertension type: essential hypertension Qualified Code(s): I10 - Essential (primary) hypertension Assessment/Plan 1. Recurrent paroxysmal atrial fibrillation with rapid ventricular response [id number] on NOAC 2. Acute on chronic LV systolic failure (mild) with nonischemic cardiomyopathy 3. Non-obstructive CAD, angina pectoris 4. AE COPD +/- PNA 5. HTN 6. Fatigue with beta blockers (metoprolol, carvedilol) PLAN: 1. Change Bystolic 10 qd to Cardizem CD 120 qd for improved rate-control, continue losartan 25 qd, Eliquis 5 bid 2. BD (agree with d/c albuterol nebs), oral steroids, empiric abx course, FIO2 to maintain saO2 3. Consider DCCV if rate-response remains suboptimal
[2018-03-18] MEDS: guaiFENesin 200 MG/10 ML 10 ML UNIT-DOSE CUPS PO PRN (21:21)
--- NOTE | 2018-03-19 06:53 | PN ---
Progress Note (short form) - Note Progress Note: Chief Complaint: Events noted, notes reviewed, dyspnea improved, continues to report cough, denies any chest pain, atrial fibrillation is persistent History of Present Illness: Seen and examined on telemetry. Events noted, notes reviewed, dyspnea improved, continues to report cough, denies any chest pain, atrial fibrillation is persistent Echocardiography revealed moderate LV systolic dysfunction, LVEF 35-40%, normal RV size and function, mild MR with mild LA dilatation, trace TR Medications: Current Medications Apixaban (Eliquis -) 5 mg PO BID [facility] Last Admin: 03/18/18 21:20 Dose: 5 mg Diltiazem HCl (Cardizem Cd -) 120 mg PO DAILY [facility] Last Admin: 03/18/18 19:07 Dose: 120 mg Guaifenesin (Robitussin -) 10 ml PO Q6H PRN PRN Reason: COUGH Last Admin: 03/18/18 21:21 Dose: 10 ml Ceftriaxone Sodium (Ceftriaxone 1 Gm-D5w Bag) 50 mls @ 100 mls/hr IVPB DAILY [facility]; Protocol Last Admin: 03/18/18 10:05 Dose: 100 mls/hr Azithromycin (Zithromax 500mg Ivpb (Pre-Docked)) 500 mg in 250 mls @ 250 mls/ hr IVPB DAILY [facility] Last Admin: 03/18/18 10:05 Dose: 250 mls/hr Ipratropium [place] (Atrovent 0.02% Nebulizer -) 1 amp NEB RQID [facility] Last Admin: 03/18/18 19:44 Dose: 1 amp Losartan Potassium (Cozaar -) 25 mg PO DAILY [facility] Last Admin: 03/18/18 10:05 Dose: 25 mg Review of Systems - Review of Systems Constitutional: denies: Chills, Fever Cardiovascular: As noted above Respiratory: reports: Cough Gastrointestinal: denies: Nausea, Vomiting, Diarrhea, Constipation, Abdominal Pain Neurological: denies: Headaches Vital Signs: Last Vital Signs Temp Pulse Resp BP Pulse Ox 97.7 F 91 H 19 127/65 100 03/19/18 06:00 03/19/18 06:00 03/19/18 06:00 03/19/18 06:00 03/19/18 06:00 Intake & Output 12/23/18 12/24/18 12/25/18 12/26/18 23:59 23:59 23:59 23:59 Intake Total 1325 1000 Output Total 380 Balance -380 1325 1000 Weight 235 lb 224 lb 9 oz 225 lb 2 oz 224 lb 0.2 oz Neck: Supple Negative JVD No Bruit Respiratory: Diminished breath sounds at the bases bilaterally Scattered Rhonchi Cardiovascular: S1 S2 Irregularly Irregular Gastrointestinal: Soft Benign Normal Bowel Sounds Ext: Negative Edema Labs: CBC, BMP 03/17/18 07:08 03/17/18 05:30 Hepatic Panel Total Bilirubin 0.5 mg/dL (0.2-1) 03/17/18 05:30 AST 35 U/L (15-37) 03/17/18 05:30 ALT 44 U/L (13-61) 03/17/18 05:30 Alkaline Phosphatase 77 U/L (45-117) 03/17/18 05:30 Albumin 3.1 g/dl (3.4-5.0) L 03/17/18 05:30 INR, PTT INR 1.71 (0.82-1.09) H D 03/17/18 07:08 Assessment/Plan ASSESSMENT: 1. Paroxysmal atrial fibrillation with rapid ventricular response [id number] score of 2 on DOAC's 2. Acute on chronic class I-II NYHA classification LV failure (moderate LV systolic dysfunction on repeat echocardiography) with non-ischemic dilated cardiomyopathy 3. CAD non obstructive CAD angina pectoris 4. Acute exacerbation of chronic obstructive airway disease, pneumonia 5. HTN 6. CKD 7. Fatigue with B-Blockers (Metoprolol, Carvedilol) PLAN: 1. Avoid Cardizem CD in view of LV systolic dysfunction and history of LV failure 2. Resume B-Blockers, aware of side effects/fatigue 3. Add Entresto and D/C Losartan in view of the above noted LV dysfunction 4. Add diuretics with close monitoring of renal function 5. Continue Eliquis 6. Repeat chest x-ray and obtain BNP 7. Consider DCCV if atrial fibrillation persists with rapid ventricular rates Dudley Milian M.D.
[2018-03-19] MEDS ORDERED: FUROSEMIDE 40 MG/4 ML INJECTABLE VIAL IVPUSH ONE (07:04)
[2018-03-19] MEDS: IPRATROPIUM BR 0.02% 0.5 MG/2.5 ML VIAL.NEB. NEB SCH ×4 (08:30→21:19)
[2018-03-19 08:35] LABS: BASO % 0.1 % (0-2.0); HEMATOCRIT 42.3 % (35.4-49); HEMOGLOBIN 13.8 GM/dl (11.7-16.9); MCH 33.6 pg (25.7-33.7); MCHC 32.6 g/dl (32.0-35.9); MEAN CELL VOLUME 103.2 fl (80-96); MEAN PLT VOLUME 9.3 fl (7.5-11.1); MONO % 10.3 % (3.8-10.2); NEUT % 69.6 % (42.8-82.8); PLATELET COUNT 265 K/MM3 (134-434); RDW 13.5 % (11.9-15.9); WHITE BLOOD COUNT 7.2 K/mm3 (4.0-10.8)
[2018-03-19 08:37] LABS: ANION GAP 11 MMOL/L (8-16); BLOOD UREA NITROGEN 52 mg/dl (7-18); CALCIUM 8.8 mg/dl (8.4-10.2); CHLORIDE 100 mmol/L (98-107); CO2 26 mmol/L (22-28); CREATININE 1.1 mg/dl (0.6-1.3); GLUCOSE,RANDOM 110 mg/dl (74-106); MAGNESIUM 2.7 mg/dL (1.8-2.4); POTASSIUM 4.4 mmol/L (3.5-5.1); SODIUM 137 mmol/L (136-145)
[2018-03-19] MEDS ORDERED: PT OWN MED DRAWER 7, Y5N ONE ×3 (09:19→21:13)
[2018-03-19] MEDS: CEFTRIAXONE 1 G/50 ML PREMIX 50 ML IVPB SCH (10:07)
[2018-03-19] MEDS: APIXABAN 5 MG TABLET PO SCH ×2 (10:08→21:19)
[2018-03-19] MEDS: SACUBITRIL/VALSARTAN 24 MG-26 MG TABLET PO SCH ×2 (10:08→21:19)
[2018-03-19] MEDS: CARVEDILOL 12.5 MG TABLET (FP) PO SCH ×2 (10:08→21:19)
[2018-03-19] MEDS: AZITHROMYCIN IVPB 500 MG/250 ML BAG IVPB SCH (10:08)
[2018-03-19] MEDS ORDERED: predniSONE 20 MG TABLET (UD) PO ONE (11:47)
--- NOTE | 2018-03-19 14:25 | PN ---
Physical Exam: SUBJECTIVE: Patient seen and examined oob to chair. Ambulating around room. Feels much better, breathing is better, walked with PT and felt good. OBJECTIVE: Vital Signs Period Temp Pulse Resp BP Sys/Baron Pulse Ox Last 24 Hr 97.5 F-98.3 F 55-113 18-19 98-127/48-76 95-100 GENERAL: The patient is awake, alert, and fully oriented, in no acute distress. LUNGS: Breath sounds equal, clear to auscultation bilaterally, no wheezes, no crackles, no accessory muscle use. Occasional cough on deep inspiration. HEART: Regular rate and rhythm, S1, S2 without murmur, rub or gallop. ABDOMEN: Soft, nontender, nondistended EXTREMITIES: 2+ pulses, warm, well-perfused, no edema. NEUROLOGICAL: Cranial nerves II through XII grossly intact. Normal speech, steady gait Laboratory Results - last 24 hr 03/19/18 03/19/18 03/19/18 07:30 07:30 07:30 WBC 7.2 RBC 4.10 Hgb 13.8 Hct 42.3 MCV 103.2 H MCH 33.6 MCHC 32.6 RDW 13.5 Plt Count 265 D MPV 9.3 Absolute Neuts (auto) 5.1 Neutrophils % 69.6 Lymphocytes % 20.0 D Monocytes % 10.3 H D Eosinophils % 0.0 Basophils % 0.1 D Sodium 137 Potassium 4.4 Chloride 100 Carbon Dioxide 26 Anion Gap 11 BUN 52 H Creatinine 1.1 Creat Clearance w eGFR > 60 Random Glucose 110 H D Calcium 8.8 Magnesium 2.7 H B-Natriuretic Peptide 1920.6 H Active Medications Generic Name Dose Route Start Last Admin Trade Name Freq PRN Reason Stop Dose Admin Apixaban 5 mg 03/16/18 10:00 03/19/18 10:08 Eliquis - PO 5 mg BID IMELDA Administration Carvedilol 12.5 mg 03/19/18 10:00 03/19/18 10:08 Coreg - PO 12.5 mg BID IMELDA Administration Furosemide 20 mg 03/20/18 10:00 Lasix - PO DAILY IMELDA Guaifenesin 10 ml 03/16/18 20:55 03/18/18 21:21 Robitussin - PO 10 ml Q6H PRN Administration COUGH Ceftriaxone Sodium 50 mls @ 100 mls/hr 03/17/18 10:00 03/19/18 10:07 Ceftriaxone 1 Gm-D5w Bag IVPB 100 mls/hr DAILY IMELDA Administration Protocol Azithromycin 500 mg in 250 mls @ 250 mls/hr 03/17/18 10:00 03/19/18 10:08 Zithromax 500mg Ivpb (Pre-Docked) IVPB 250 mls/hr DAILY IMELDA Administration Ipratropium [place] 1 amp 03/18/18 16:00 03/19/18 12:36 Atrovent 0.02% Nebulizer - NEB 1 amp RQID IMELDA Administration Prednisone 10 mg 03/20/18 10:00 Deltasone - PO 03/20/18 10:01 ONCE ONE Sacubitril/Valsartan 1 tab 03/19/18 10:00 03/19/18 10:08 Entresto 24 Mg-26 Mg Tablet PO 1 tab BID IMELDA Administration ASSESSMENT/PLAN: 67 year-old male with PMH significant for HTN, paroxysmal afib with h/o cardioversion x 2 on Eliquis, DVT right leg, nonobstructive CAD, systolic heart failure, admitted for CAP and CHF exacerbation. Community acquired pneumonia --03/16 CXR: early right perihilar infiltrate --febrile 100.6 on admission, afebrile since, no leukocytosis --continue empiric ceftriaxone (day #4) and azithromycin (day #4) --cultures negative to date --tapering PO steroids Paroxysmal atrial fibrillation with RVR --cardioverted 2012, 2015 --per cardiology, initially treated with Bystolic, then Cardizem, today switched to carvedilol 12.5mg BID and Entresto BID --continue Eliquis Acute on chronic systolic failure Nonischemic cardiomyopathy --03/16 CXR: congestive changes, fluid in horizontal fissure --received 2 doses IV Lasix on 03/16 --Lasix resumed 03/18; note rising BUN, Cr stable --daily weights Elevated total bili, resolved Hypertension --BP stable --continue Entresto FEN Fluids: PO intake adequate Electrolytes: replete as indicated Nutrition: low sodium DVT prophylaxis: on Eliquis Dispo: continues to require inpatient care. Full code. Visit type - Emergency Visit Emergency Visit: Yes ED Registration Date: 03/16/18 Care time: The patient presented to the Emergency Department on the above date and was hospitalized for further evaluation of their emergent condition. - New Patient This patient is new to me today: No - Critical Care Critical Care patient: No
[2018-03-20] MEDS: CARVEDILOL 12.5 MG TABLET (FP) PO SCH ×2 (05:23→21:16)
[2018-03-20] MEDS: IPRATROPIUM BR 0.02% 0.5 MG/2.5 ML VIAL.NEB. NEB SCH ×4 (08:47→21:16)
--- NOTE | 2018-03-20 09:54 | PN ---
Physical Exam: SUBJECTIVE: Patient seen and examined oob to chair. Cough is worse today. OBJECTIVE: Vital Signs Period Temp Pulse Resp BP Sys/Baron Pulse Ox Last 24 Hr 97.5 F-98.3 F 55-145 16-20 98-115/48-71 96-98 GENERAL: The patient is awake, alert, and fully oriented, in no acute distress. LUNGS: Breath sounds equal, clear to auscultation bilaterally, no wheezes, no crackles, no accessory muscle use. Occasional cough on deep inspiration. HEART: Regular rate and rhythm, S1, S2 without murmur, rub or gallop. ABDOMEN: Soft, nontender, nondistended EXTREMITIES: 2+ pulses, warm, well-perfused, no edema. NEUROLOGICAL: Cranial nerves II through XII grossly intact. Normal speech, steady gait Active Medications Generic Name Dose Route Start Last Admin Trade Name Freq PRN Reason Stop Dose Admin Apixaban 5 mg 03/16/18 10:00 03/19/18 21:19 Eliquis - PO 5 mg BID IMELDA Administration Carvedilol 12.5 mg 03/20/18 05:30 03/20/18 05:23 Coreg - PO 12.5 mg BID IMELDA Administration Furosemide 20 mg 03/20/18 10:00 Lasix - PO DAILY IMELDA Guaifenesin 10 ml 03/16/18 20:55 03/18/18 21:21 Robitussin - PO 10 ml Q6H PRN Administration COUGH Ceftriaxone Sodium 50 mls @ 100 mls/hr 03/17/18 10:00 03/19/18 10:07 Ceftriaxone 1 Gm-D5w Bag IVPB 100 mls/hr DAILY IMELDA Administration Protocol Azithromycin 500 mg in 250 mls @ 250 mls/hr 03/17/18 10:00 03/19/18 10:08 Zithromax 500mg Ivpb (Pre-Docked) IVPB 03/20/18 12:00 250 mls/hr DAILY IMELDA Administration Ipratropium [place] 1 amp 03/18/18 16:00 03/20/18 08:47 Atrovent 0.02% Nebulizer - NEB 1 amp RQID IMELDA Administration Prednisone 10 mg 03/20/18 10:00 Deltasone - PO 03/20/18 10:01 ONCE ONE Sacubitril/Valsartan 1 tab 03/19/18 10:00 03/19/18 21:19 Entresto 24 Mg-26 Mg Tablet PO 1 tab BID IMELDA Administration ASSESSMENT/PLAN: 67 year-old male with PMH significant for HTN, paroxysmal afib with h/o cardioversion x 2 on Eliquis, DVT right leg, nonobstructive CAD, systolic heart failure, admitted for CAP and CHF exacerbation. Community acquired pneumonia --afebrile, no leukocytosis --continue empiric ceftriaxone (day #5); azithromycin x 5 days, course complete --cultures negative to date --steroid taper complete --CT chest for worsening cough Paroxysmal atrial fibrillation with RVR --HR to 150s overnight --continue carvedilol 12.5mg BID and Entresto BID until cardiology reassesses --continue Eliquis Acute on chronic systolic failure Nonischemic cardiomyopathy --03/17 Echo: LV moderately reduced, EF 35-40%, hypokinesis of LV; RV normal ; LAE; mild MR; trace TR --continue low-dose Lasix --daily weights: down only 0.8kg since 03/17; patient has been drinking 4-5 pitchers water per day; fluid restrict 1L Elevated total bili, resolved Hypertension --BP stable --continue Entresto FEN Fluids: PO intake adequate Electrolytes: replete as indicated Nutrition: low sodium DVT prophylaxis: on Eliquis Dispo: continues to require inpatient care. Full code. Visit type - Emergency Visit Emergency Visit: Yes ED Registration Date: 03/16/18 Care time: The patient presented to the Emergency Department on the above date and was hospitalized for further evaluation of their emergent condition. - New Patient This patient is new to me today: No - Critical Care Critical Care patient: No
[2018-03-20] MEDS ORDERED: predniSONE 10 MG TABLET (UD) PO ONE (10:00)
[2018-03-20] MEDS ORDERED: PT OWN MED DRAWER 7, Y5N ONE ×3 (10:09→20:56)
[2018-03-20] MEDS: FUROSEMIDE 20 MG TABLET (FP) PO SCH (10:23)
[2018-03-20] MEDS: SACUBITRIL/VALSARTAN 24 MG-26 MG TABLET PO SCH ×2 (10:24→21:15)
[2018-03-20] MEDS: AZITHROMYCIN IVPB 500 MG/250 ML BAG IVPB SCH (10:24)
[2018-03-20] MEDS: APIXABAN 5 MG TABLET PO SCH ×2 (10:25→21:15)
[2018-03-20] MEDS: CEFTRIAXONE 1 G/50 ML PREMIX 50 ML IVPB SCH (10:27)
--- NOTE | 2018-03-20 12:54 | PN ---
Progress Note, Physician History of Present Illness: Dypnea on exertion, cough productive of yellow-brown sputum, wheeze worse, but rate-control of afib is suboptimal despite uptitration switch to carvedilol. - Current Medication List Current Medications: Active Medications Apixaban (Eliquis -) 5 mg PO BID [facility] Last Admin: 03/20/18 10:25 Dose: 5 mg Carvedilol (Coreg -) 12.5 mg PO BID [facility] Last Admin: 03/20/18 05:23 Dose: 12.5 mg Furosemide (Lasix -) 20 mg PO DAILY [facility] Last Admin: 03/20/18 10:23 Dose: 20 mg Guaifenesin (Robitussin -) 10 ml PO Q6H PRN PRN Reason: COUGH Last Admin: 03/18/18 21:21 Dose: 10 ml Ceftriaxone Sodium (Ceftriaxone 1 Gm-D5w Bag) 50 mls @ 100 mls/hr IVPB DAILY [facility]; Protocol Last Admin: 03/20/18 10:27 Dose: 100 mls/hr Ipratropium [place] (Atrovent 0.02% Nebulizer -) 1 amp NEB RQID [facility] Last Admin: 03/20/18 08:47 Dose: 1 amp Sacubitril/Valsartan (Entresto 24 Mg-26 Mg Tablet) 1 tab PO BID [facility] Last Admin: 03/20/18 10:24 Dose: 1 tab - Objective Vital Signs: Vital Signs Temperature 98.0 F 03/20/18 05:05 Pulse Rate 110 H 03/20/18 10:00 Respiratory Rate 18 03/20/18 08:53 Blood Pressure 105/62 03/20/18 05:05 O2 Sat by Pulse Oximetry (%) 96 03/20/18 10:00 Constitutional: Yes: No Distress, Calm Neck: Yes: Supple Cardiovascular: Yes: Tachycardia, Pulse Irregular Respiratory: Yes: Regular, Cough, Diminished, SOB on Exertion, Wheezes Gastrointestinal: Yes: Normal Bowel Sounds, Soft Edema: No Labs: CBC, BMP 03/19/18 07:30 03/19/18 07:30 INR, PTT INR 1.71 (0.82-1.09) H D 03/17/18 07:08 - ....Imaging EKG: Report Reviewed (Tele: Rapid afib) Problem List - Problems (1) COPD (chronic obstructive pulmonary disease) Code(s): J44.9 - CHRONIC OBSTRUCTIVE PULMONARY DISEASE, UNSPECIFIED Qualifiers: COPD type: COPD with acute exacerbation Qualified Code(s): J44.1 - Chronic obstructive pulmonary disease with (acute) exacerbation (2) CHF (congestive heart failure) Code(s): I50.9 - HEART FAILURE, UNSPECIFIED Qualifiers: Heart failure type: combined systolic and diastolic Heart failure chronicity: acute on chronic Qualified Code(s): I50.43 - Acute on chronic combined systolic (congestive) and diastolic (congestive) heart failure (3) Atrial fibrillation with RVR Code(s): I48.91 - UNSPECIFIED ATRIAL FIBRILLATION (4) Hypertension Code(s): I10 - ESSENTIAL (PRIMARY) HYPERTENSION Qualifiers: Hypertension type: essential hypertension Qualified Code(s): I10 - Essential (primary) hypertension Assessment/Plan 03/17/2018 Echocardiography revealed moderate LV systolic dysfunction, LVEF 35- 40%, normal RV size and function, mild MR with mild LA dilatation, trace TR 1. Paroxysmal atrial fibrillation with rapid ventricular response [id number] score of 2 on DOAC's 2. Acute on chronic class I-II NYHA classification LV failure (moderate LV systolic dysfunction on repeat echocardiography) with non-ischemic dilated cardiomyopathy - suspect tachycardia-induced 3. CAD non obstructive CAD angina pectoris 4. Acute exacerbation of chronic obstructive airway disease, pneumonia 5. HTN 6. CKD 7. Fatigue with B-Blockers (Metoprolol, Carvedilol) PLAN: 1. Uptitrated carvedilol 12.5 bid, continue Eliquis 5 bid, Lasix 20 qd, Entresto 24/26 bid 2. Add Aldactone 25 qd as hemodynamics tolerate 3. F/u chest CT 4. Consider DCCV if atrial fibrillation persists with rapid ventricular rates
[2018-03-20] MEDS: methylPREDNISolone NA SUCC 40 MG/1 ML VIAL IVPUSH SCH ×2 (14:43→18:29)
[2018-03-21] MEDS: methylPREDNISolone NA SUCC 40 MG/1 ML VIAL IVPUSH SCH ×3 (02:26→18:20)
[2018-03-21] MEDS: IPRATROPIUM BR 0.02% 0.5 MG/2.5 ML VIAL.NEB. NEB SCH ×4 (08:05→21:06)
--- NOTE | 2018-03-21 08:37 | PN ---
Physical Exam: SUBJECTIVE: Patient seen and examined. Breathing and coughing better. Ambulated briskly in hallway today. OBJECTIVE: Vital Signs Period Temp Pulse Resp BP Sys/Baron Pulse Ox Last 24 Hr 97.6 F-97.8 F 55-110 18-20 113-119/61-69 95-97 GENERAL: The patient is awake, alert, and fully oriented, in no acute distress. LUNGS: Breath sounds CTA HEART: Regular rate and rhythm, S1, S2 without murmur, rub or gallop. ABDOMEN: Soft, nontender, nondistended EXTREMITIES: 2+ pulses, warm, well-perfused, no edema. NEUROLOGICAL: Cranial nerves II through XII grossly intact. Normal speech, steady gait Active Medications Generic Name Dose Route Start Last Admin Trade Name Freq PRN Reason Stop Dose Admin Apixaban 5 mg 03/16/18 10:00 03/20/18 21:15 Eliquis - PO 5 mg BID IMELDA Administration Carvedilol 12.5 mg 03/20/18 05:30 03/20/18 21:16 Coreg - PO 12.5 mg BID IMELDA Administration Furosemide 20 mg 03/20/18 10:00 03/20/18 10:23 Lasix - PO 20 mg DAILY IMELDA Administration Guaifenesin 10 ml 03/16/18 20:55 03/18/18 21:21 Robitussin - PO 10 ml Q6H PRN Administration COUGH Ceftriaxone Sodium 50 mls @ 100 mls/hr 03/17/18 10:00 03/20/18 10:27 Ceftriaxone 1 Gm-D5w Bag IVPB 100 mls/hr DAILY IMELDA Administration Protocol Ipratropium [place] 1 amp 03/18/18 16:00 03/20/18 21:16 Atrovent 0.02% Nebulizer - NEB 1 amp RQID IMELDA Administration Methylprednisolone Sodium Succinate 40 mg 03/20/18 14:15 03/21/18 02:26 Solu-Medrol - IVPUSH 40 mg Q8H-IV IMELDA Administration Sacubitril/Valsartan 1 tab 03/19/18 10:00 03/20/18 21:15 Entresto 24 Mg-26 Mg Tablet PO 1 tab BID IMELDA Administration Spironolactone 25 mg 03/21/18 10:00 Aldactone - PO DAILY IMELDA ASSESSMENT/PLAN 67 year-old male with PMH significant for HTN, paroxysmal afib with h/o cardioversion x 2 on Eliquis, DVT right leg, nonobstructive CAD, systolic heart failure, admitted for CAP and CHF exacerbation. Community acquired pneumonia --afebrile, no leukocytosis --continue empiric ceftriaxone (day #5); azithromycin x 5 days, course complete --cultures negative to date --steroid taper complete --CT chest for worsening cough Paroxysmal atrial fibrillation with RVR --HR to 150s overnight --continue carvedilol 12.5mg BID and Entresto BID until cardiology reassesses --continue Eliquis Acute on chronic systolic failure Nonischemic cardiomyopathy --03/17 Echo: LV moderately reduced, EF 35-40%, hypokinesis of LV; RV normal ; LAE; mild MR; trace TR --continue low-dose Lasix --daily weights: down only 0.8kg since 03/17; patient has been drinking 4-5 pitchers water per day; fluid restrict 1L Elevated total bili, resolved Hypertension --BP stable --continue Entresto FEN Fluids: PO intake adequate Electrolytes: replete as indicated Nutrition: low sodium DVT prophylaxis: on Eliquis Dispo: continues to require inpatient care. Full code. Visit type - Emergency Visit Emergency Visit: Yes ED Registration Date: 03/16/18 Care time: The patient presented to the Emergency Department on the above date and was hospitalized for further evaluation of their emergent condition. - New Patient This patient is new to me today: No - Critical Care Critical Care patient: No
--- NOTE | 2018-03-21 09:22 | PN ---
Progress Note, Physician History of Present Illness: Dypnea on exertion, cough productive of yellow-brown sputum, wheeze resolved, ambulating hallways, but rate-control of afib still suboptimal despite uptitration of carvedilol. - Current Medication List Current Medications: Active Medications Apixaban (Eliquis -) 5 mg PO BID [facility] Last Admin: 03/20/18 21:15 Dose: 5 mg Carvedilol (Coreg -) 12.5 mg PO BID [facility] Last Admin: 03/20/18 21:16 Dose: 12.5 mg Furosemide (Lasix -) 20 mg PO DAILY [facility] Last Admin: 03/20/18 10:23 Dose: 20 mg Guaifenesin (Robitussin -) 10 ml PO Q6H PRN PRN Reason: COUGH Last Admin: 03/18/18 21:21 Dose: 10 ml Ceftriaxone Sodium (Ceftriaxone 1 Gm-D5w Bag) 50 mls @ 100 mls/hr IVPB DAILY [facility]; Protocol Last Admin: 03/20/18 10:27 Dose: 100 mls/hr Ipratropium [place] (Atrovent 0.02% Nebulizer -) 1 amp NEB RQID [facility] Last Admin: 03/20/18 21:16 Dose: 1 amp Methylprednisolone Sodium Succinate (Solu-Medrol -) 40 mg IVPUSH Q8H-IV [facility] Last Admin: 03/21/18 02:26 Dose: 40 mg Sacubitril/Valsartan (Entresto 24 Mg-26 Mg Tablet) 1 tab PO BID [facility] Last Admin: 03/20/18 21:15 Dose: 1 tab Spironolactone (Aldactone -) 25 mg PO DAILY [facility] - Objective Vital Signs: Vital Signs Temperature 97.6 F 03/21/18 06:45 Pulse Rate 55 L 03/21/18 06:45 Respiratory Rate 20 03/21/18 06:45 Blood Pressure 113/69 03/21/18 06:45 O2 Sat by Pulse Oximetry (%) 95 03/20/18 20:32 Constitutional: Yes: No Distress, Calm, Thin Neck: Yes: Supple Cardiovascular: Yes: Tachycardia, Pulse Irregular Respiratory: Yes: Regular, CTA Bilaterally Gastrointestinal: Yes: Normal Bowel Sounds, Soft Edema: No Labs: CBC, BMP 03/19/18 07:30 03/19/18 07:30 INR, PTT INR 1.71 (0.82-1.09) H D 03/17/18 07:08 - ....Imaging Cat Scan: Report Reviewed (Lt base ATX/scarring) EKG: Report Reviewed (Tele: Rapid afib) Problem List - Problems (1) COPD (chronic obstructive pulmonary disease) Code(s): J44.9 - CHRONIC OBSTRUCTIVE PULMONARY DISEASE, UNSPECIFIED Qualifiers: COPD type: COPD with acute exacerbation Qualified Code(s): J44.1 - Chronic obstructive pulmonary disease with (acute) exacerbation (2) CHF (congestive heart failure) Code(s): I50.9 - HEART FAILURE, UNSPECIFIED Qualifiers: Heart failure type: combined systolic and diastolic Heart failure chronicity: acute on chronic Qualified Code(s): I50.43 - Acute on chronic combined systolic (congestive) and diastolic (congestive) heart failure (3) Atrial fibrillation with RVR Code(s): I48.91 - UNSPECIFIED ATRIAL FIBRILLATION (4) Hypertension Code(s): I10 - ESSENTIAL (PRIMARY) HYPERTENSION Qualifiers: Hypertension type: essential hypertension Qualified Code(s): I10 - Essential (primary) hypertension Assessment/Plan 03/17/2018 Echocardiography revealed moderate LV systolic dysfunction, LVEF 35- 40%, normal RV size and function, mild MR with mild LA dilatation, trace TR 1. Persistent atrial fibrillation with rapid ventricular response [id number] score of 2 on DOAC's 2. Acute on chronic class I-II NYHA classification LV failure (moderate LV systolic dysfunction on repeat echocardiography) with non-ischemic dilated cardiomyopathy - suspect tachycardia-induced 3. CAD non obstructive CAD angina pectoris 4. Acute exacerbation of chronic obstructive airway disease, pneumonia 5. HTN 6. CKD 7. Fatigue with B-Blockers (Metoprolol, Carvedilol) PLAN: 1. Uptitrate carvedilol 25 bid, continue Eliquis 5 bid, Lasix 20 qd, Entresto 24 /26 bid 2. Add Aldactone 25 qd as hemodynamics tolerate 3. Chest CT results reviewed 4. Consider DCCV if atrial fibrillation persists with rapid ventricular rates 5. BD, steroid taper, empiric abx course, O2 as needed
[2018-03-21] MEDS ORDERED: PT OWN MED DRAWER 7, Y5N ONE ×2 (09:28→19:57)
[2018-03-21] MEDS: APIXABAN 5 MG TABLET PO SCH ×2 (09:42→21:07)
[2018-03-21] MEDS: FUROSEMIDE 20 MG TABLET (FP) PO SCH (09:42)
[2018-03-21] MEDS: SACUBITRIL/VALSARTAN 24 MG-26 MG TABLET PO SCH ×2 (09:42→21:07)
[2018-03-21] MEDS: CEFTRIAXONE 1 G/50 ML PREMIX 50 ML IVPB SCH (09:42)
[2018-03-21] MEDS: SPIRONOLACTONE 25 MG TABLET (FP) PO SCH (09:42)
[2018-03-21] MEDS: CARVEDILOL 25 MG TABLET (FP) PO SCH ×2 (09:42→21:07)
[2018-03-22] MEDS: methylPREDNISolone NA SUCC 40 MG/1 ML VIAL IVPUSH SCH ×2 (01:45→09:08)
[2018-03-22 07:10] VITALS: BP 122/67; PULSE 117; TEMP 97.9
[2018-03-22] MEDS: IPRATROPIUM BR 0.02% 0.5 MG/2.5 ML VIAL.NEB. NEB SCH (08:30)
[2018-03-22] MEDS: APIXABAN 5 MG TABLET PO SCH (09:07)
[2018-03-22] MEDS: CARVEDILOL 25 MG TABLET (FP) PO SCH (09:07)
[2018-03-22] MEDS: SACUBITRIL/VALSARTAN 24 MG-26 MG TABLET PO SCH (09:07)
[2018-03-22] MEDS: SPIRONOLACTONE 25 MG TABLET (FP) PO SCH (09:07)
[2018-03-22] MEDS: FUROSEMIDE 20 MG TABLET (FP) PO SCH (09:08)
--- NOTE | 2018-03-22 10:58 | DS ---
Physical Exam: SUBJECTIVE: Patient seen and examined OBJECTIVE: Vital Signs Period Temp Pulse Resp BP Sys/Baron Pulse Ox Last 24 Hr 97.5 F-97.9 F 61-117 18-20 98-122/62-86 97-98 PHYSICAL EXAM GENERAL: The patient is awake, alert, and fully oriented, in no acute distress. HEAD: Normal with no signs of trauma. EYES: PERRL, extraocular movements intact, sclera anicteric, conjunctiva clear. ENT: Ears normal, nares patent, oropharynx clear without exudates, moist mucous membranes. NECK: Trachea midline, full range of motion, supple. LUNGS: Breath sounds equal, clear to auscultation bilaterally, no wheezes, no crackles, no accessory muscle use. HEART: Regular rate and rhythm, S1, S2 without murmur, rub or gallop. ABDOMEN: Soft, nontender, nondistended, normoactive bowel sounds, no guarding, no rebound, no hepatosplenomegaly, no masses. EXTREMITIES: 2+ pulses, warm, well-perfused, no edema. NEUROLOGICAL: Cranial nerves II through XII grossly intact. Normal speech, gait not observed. PSYCH: Normal mood, normal affect. SKIN: Warm, dry, normal turgor, no rashes or lesions noted. LABS HOSPITAL COURSE: Date of Admission:03/16/18 Date of Discharge: 03/22/18 Minutes to complete discharge: 35 Discharge Summary Reason For Visit: SOB Current Active Problems CHF (congestive heart failure) (Acute) COPD (chronic obstructive pulmonary disease) (Acute) Condition: Stable - Instructions Diet, Activity, Other Instructions: Four prescriptions have been sent to your pharmacy. Take these medications as directed. 1. Tapering course of prednisone. 2. Coreg (carvedilol) 3. Entresto (sacubitril/valsartan) 4. Aldactone (spironolactone) You should STOP taking the losartan pills you were previously taking as there is a component of that drug in Entresto. As we discussed you have an appointment to see Dr. Milian on March 28. It is recommended you follow up promptly with a eye dropper assembler. Contact information for Dr. Negro is enclosed in this discharge packet. You have also been provided with contact information for Dr. Melba Nava and the [place] [facility]. Return to the emergency department for any new or worsening symptoms. Referrals: Jona Negro MD [Staff Physician] - Dudley Milian MD [Staff Physician] - Abelardo Yepez MD [Primary Care Provider] - Disposition: HOME - Home Medications Comprehensive Discharge Medication List: Ambulatory Orders Apixaban [Eliquis -] 5 mg PO BID #0 tablet 02/17/13 Allopurinol [Zyloprim -] 600 mg PO BID 03/16/18 Carvedilol [Coreg -] 25 mg PO BID #60 tablet 03/22/18 Furosemide [Lasix -] 20 mg PO DAILY tablet 03/22/18 Prednisone [Deltasone] 20 mg PO ASDIR #32 tablet 03/22/18 Sacubitril/Valsartan [Entresto 24 mg-26 mg Tablet] 1 tab PO BID #60 tablet 03/22 Spironolactone [Aldactone -] 25 mg PO DAILY #30 tablet 03/22/18 This patient is new to me today: No Emergency Visit: Yes ED Registration Date: 03/16/18 Care time: The patient presented to the Emergency Department on the above date and was hospitalized for further evaluation of their emergent condition. Critical Care patient: No - Discharge Referral Referred to [facility] No
--- NOTE | 2018-05-20 11:40 | EKG ---
Test Reason : Blood Pressure : / mmHG Vent. Rate : 095 BPM Atrial Rate : 156 BPM P-R Int : 000 ms QRS Dur : 100 ms QT Int : 390 ms P-R-T Axes : 000 035 032 degrees QTc Int : 490 ms ATRIAL FIBRILLATION WITH PREMATURE VENTRICULAR OR ABERRANTLY CONDUCTED COMPLEXES CANNOT RULE OUT INFERIOR INFARCT , AGE UNDETERMINED ABNORMAL ECG WHEN COMPARED WITH ECG OF 16-MAR-2018 03:30, NO SIGNIFICANT CHANGE WAS FOUND Confirmed by Pablito Chong MD ([id number]) on 05/20/2018 11:40:19 AM Referred By: DR CARRASCO Confirmed By:Pablito Chong MD
== END 2018-03-22 12:00 | disposition home or self-care (01) | DRG 291 ==
LOC: FER 03:17 → UNDOADMIN 05:50 → FM/S 05:50
PROVIDERS: ADMIT Internal Medicine; ATTEND Nurse Practitioner Acute Care
DX: I13.0 Hypertensive heart and chronic kidney disease with heart failure and stage 1 through stage 4 chronic kidney disease, or unspecified chronic kidney disease (principal); J18.9 Pneumonia, unspecified organism; I50.43 Acute on chronic combined systolic (congestive) and diastolic (congestive) heart failure; I48.1 Persistent atrial fibrillation; J44.1 Chronic obstructive pulmonary disease with (acute) exacerbation; E87.1 Hypo-osmolality and hyponatremia; I42.9 Cardiomyopathy, unspecified; N18.9 Chronic kidney disease, unspecified; I25.119 Atherosclerotic heart disease of native coronary artery with unspecified angina pectoris; Z86.718 Personal history of other venous thrombosis and embolism; I48.0 Paroxysmal atrial fibrillation; Z87.891 Personal history of nicotine dependence; Z96.643 Presence of artificial hip joint, bilateral; Z96.651 Presence of right artificial knee joint
CPT/HCPCS: 36415; 71045-TC-FY; 71046-TC-FY; 71250-TC; 80048; 80053; 80061; 81003; 81015; 82550; 82553; 83036; 83735; 83880; 84100; 84484; 85025; 85379; 85610; 87040; 87070; 87086; 87205; 87899; 93005; 93306-TC; 94640; 97116-GP; 97161-GP; 99283-25

== ENCOUNTER → 2018-03-31 | Day surgery (SDC) | payer OTHER ==
[2018-03-31 10:45] VITALS: BMI 30.4
[2018-03-31 11:27] VITALS: TEMP 97.5
[2018-03-31 11:57] VITALS: BP 103/57; PULSE 60
--- NOTE | 2018-03-31 14:45 | EKG ---
Test Reason : Blood Pressure : / mmHG Vent. Rate : 064 BPM Atrial Rate : 064 BPM P-R Int : 192 ms QRS Dur : 098 ms QT Int : 428 ms P-R-T Axes : -15 005 016 degrees QTc Int : 441 ms SINUS RHYTHM WITH PREMATURE ATRIAL COMPLEXES CANNOT RULE OUT INFERIOR INFARCT (CITED ON OR BEFORE 17-MAR-2018) ABNORMAL ECG WHEN COMPARED WITH ECG OF 17-MAR-2018 06:10, SINUS RHYTHM HAS REPLACED ATRIAL FIBRILLATION VENT. RATE HAS DECREASED BY 31 BPM Confirmed by JONH HUBER MD ([id number]) on 03/31/2018 2:44:52 PM Referred By: CECILE BORJA DR Confirmed By:JONH HUBER MD
== END | disposition home or self-care (01) ==
LOC: JASU-ENDO 09:57
PROVIDERS: ATTEND Internal Medicine Cardiovascular Disease
PROC: 5A2204Z Restoration of Cardiac Rhythm, Single (ICD-10-PCS; principal; 2018-03-31 10:30)
DX: I48.91 Unspecified atrial fibrillation (principal)
CPT/HCPCS: 92960; 93005; 93010

== ENCOUNTER 2019-02-04 11:08 | Day surgery (SDC) | payer OTHER ==
[2019-02-03 16:59] VITALS: BMI 30.4
--- NOTE | 2019-02-04 12:25 | PN ---
Progress Note (short form) - Note Progress Note: Procedure Note: Direct Current Cardioversion Diagnosis: 1. Persistent atrial fibrillation with rapid ventricular response [id number] score of 2 on DOAC's 2. Chronic class I-II NYHA classification LV failure (moderate LV systolic dysfunction on repeat echocardiography) with non-ischemic dilated cardiomyopathy - suspect tachycardia-induced 3. CAD non obstructive CAD angina pectoris 4. Acute exacerbation of chronic obstructive airway disease, pneumonia 5. HTN 6. CKD 7. Fatigue with B-Blockers (Metoprolol, Carvedilol) 8. Hypothyroidism Testin06/19/2018 Echocardiography revealed Normal LV size and fxn LVEF 55-60% , mod LAE, normal RV size and function, mild-mod MR Medications: carvedilol 25 bid, Eliquis 5 bid, Entresto 24/26 bid, Aldactone 25 qd, amio 200 qd compliance confirmed with patient Procedure: After informed consent obtained, anesthesia was administered, successful DCCV after 3 trials max with 200 J, EKG confirms sinus bradycardia 41 with PAC Complications: None Recommendations: Decrease carvedilol 12.5 bid, f/u with Dr. Milian for medication management Saturday02/09/2019 4:00 PM
[2019-02-04 12:57] VITALS: TEMP 97.7
--- NOTE | 2019-02-04 14:23 | EKG ---
Test Reason : Blood Pressure : / mmHG Vent. Rate : 041 BPM Atrial Rate : 041 BPM P-R Int : 202 ms QRS Dur : 100 ms QT Int : 538 ms P-R-T Axes : 087 023 018 degrees QTc Int : 443 ms MARKED SINUS BRADYCARDIA WITH PREMATURE ATRIAL COMPLEXES ABNORMAL ECG WHEN COMPARED WITH ECG OF 31-MAR-2018 11:33, VENT. RATE HAS DECREASED BY 23 BPM Confirmed by DENNIS QURESHI MD ([id number]) on 02/04/2019 2:23:12 PM Referred By: Carlos GENAO Confirmed By:DENNIS QURESHI MD
[2019-02-04 15:01] VITALS: BP 106/62; PULSE 53
== END 2019-02-04 14:50 | disposition home or self-care (01) ==
LOC: JASU-ENDO 11:08
PROVIDERS: ATTEND Internal Medicine Cardiovascular Disease
PROC: 5A2204Z Restoration of Cardiac Rhythm, Single (ICD-10-PCS; principal; 2019-02-04 12:15)
DX: I48.19 Other persistent atrial fibrillation (principal); E03.9 Hypothyroidism, unspecified; I12.9 Hypertensive chronic kidney disease with stage 1 through stage 4 chronic kidney disease, or unspecified chronic kidney disease; N18.9 Chronic kidney disease, unspecified; I25.118 Atherosclerotic heart disease of native coronary artery with other forms of angina pectoris; J44.1 Chronic obstructive pulmonary disease with (acute) exacerbation
CPT/HCPCS: 92960; 93005; 93010

== ENCOUNTER 2020-12-26 16:41 | Emergency (ER) | payer BC, OTHER ==
[2020-12-26 16:59] VITALS: BP 156/83; PULSE 58; TEMP 98.1; BMI 30.2
[2020-12-26 18:22] LABS: EOS % 10.3 % (0-4.5); HEMATOCRIT 42.9 % (35.4-49); HEMOGLOBIN 14.4 GM/dl (11.7-16.9); LYMPH % 32.9 % (8-40); MCHC 33.5 g/dl (32.0-35.9); MEAN CELL VOLUME 101.6 fl (80-96); MEAN PLT VOLUME 8.4 fl (7.5-11.1); MONO % 7.9 % (3.8-10.2); NEUT % 45.9 % (42.8-82.8); PLATELET COUNT 200 10^3/uL (134-434); RBC 4.23 M/mm3 (4.00-5.60); RDW 14.1 % (11.9-15.9); WHITE BLOOD COUNT 5.9 K/mm3 (4.0-10.8)
[2020-12-26 18:33] LABS: ALBUMIN 4.3 g/dl (3.4-5.0); ALK PHOS 62 U/L (45-117); ANION GAP 11 MMOL/L (8-16); BILIRUBIN,TOTAL 0.6 mg/dl (0.2-1); CALCIUM 9.2 mg/dl (8.5-10); CHLORIDE 100 mmol/L (98-107); CO2 28 mmol/L (21-32); GLUCOSE,RANDOM 87 mg/dl (74-106); SGOT/AST 26 U/L (15-37); SGPT/ALT 21 U/L (13-61); SODIUM 139 mmol/L (136-145); TOT PROT 6.7 g/dl (6.4-8.2)
== END 2020-12-26 20:08 | disposition home or self-care (01) ==
LOC: FER 16:41
DX: R53.1 Weakness (principal); R41.0 Disorientation, unspecified
CPT/HCPCS: 36415; 70450-TC; 80053; 81003; 82390; 82550; 82553; 82962; 84484; 85025; 86618; 86780; 87086; 99284-25

== ENCOUNTER 2021-04-11 04:37 | Day surgery (SDC) | payer OTHER ==
[2021-04-06 15:39] VITALS: BMI 32.0
[2021-04-11] MEDS ORDERED: MIDAZOLAM HCL 2 MG/2 ML SINGLE DOSE VIAL ONE (11:12)
[2021-04-11 11:47] VITALS: TEMP 97.5
[2021-04-11 13:08] VITALS: BP 100/54; PULSE 55
== END 2021-04-11 12:52 | disposition home or self-care (01) ==
LOC: JASU-ENDO 04:37
PROVIDERS: ATTEND Internal Medicine Cardiovascular Disease
PROC: 5A2204Z Restoration of Cardiac Rhythm, Single (ICD-10-PCS; principal; 2021-04-11 12:00)
DX: I48.91 Unspecified atrial fibrillation (principal)
CPT/HCPCS: 92960; 93005; 93010

== ENCOUNTER 2021-12-20 09:06 | Day surgery (SDC) | payer OTHER ==
[2021-12-15 12:33] VITALS: BMI 30.5
[2021-12-20] MEDS: PHENYLEPHRINE 2.5% OPHTH SOLN 15 ML BOTTLE ONE ×3 (09:30→09:40)
[2021-12-20] MEDS: TROPICAMIDE 1% OPHTH SOLN 15 ML BOTTLE ONE ×3 (09:30→09:40)
[2021-12-20] MEDS: CYCLOPENTOLATE 2% OPHTH SOLN 2 ML BOTTLE ONE ×3 (09:30→09:40)
[2021-12-20] MEDS: CIPROFLOXACIN 0.3% EYE DROPS 5 ML BOTTLE ONE ×3 (09:30→09:40)
[2021-12-20] MEDS ORDERED: MIDAZOLAM HCL 2 MG/2 ML SINGLE DOSE VIAL ONE (10:48)
[2021-12-20] MEDS ORDERED: EPINEPHrine/PF 1 MG/1 ML (1:1,000) AMPULE ONE (11:24)
[2021-12-20] MEDS ORDERED: LIDOCAINE 1% P/F 10 MG/ML VIAL ONE (11:25)
[2021-12-20] MEDS ORDERED: NEO/POLYMYX B SULF/DEXAMETH OPHTHALMIC 5ML BOTTLE ONE (11:25)
[2021-12-20] MEDS ORDERED: BSS (NA/CA/MG/K) BALANCED SALT SOLUTION OPHTH SOLN 15 ML BOTTLE ONE (11:25)
[2021-12-20] MEDS ORDERED: TETRACAINE 0.5% OPHTH SOLN 2 ML BOTTLE ONE (11:25)
[2021-12-20] MEDS ORDERED: CARBACHOL 0.01% INTRA-OCULAR 1.5 ML VIAL ONE (11:25)
[2021-12-20 11:56] VITALS: PULSE 50; RESP 16; TEMP 97.8
[2021-12-20 12:20] VITALS: BP 122/78
== END 2021-12-20 12:10 | disposition home or self-care (01) ==
LOC: FASU 09:06
PROVIDERS: ATTEND Ophthalmology
PROC: 08RK3JZ Replacement of Left Lens with Synthetic Substitute, Percutaneous Approach (ICD-10-PCS; principal; 2021-12-20 10:57)
DX: H26.8 Other specified cataract (principal)
CPT/HCPCS: 66984; V2632

== ENCOUNTER 2022-01-10 10:24 | Day surgery (SDC) | payer OTHER ==
[2022-01-05 13:20] VITALS: BMI 30.5
[2022-01-10] MEDS: PHENYLEPHRINE 2.5% OPHTH SOLN 15 ML BOTTLE ONE ×3 (10:50→11:00)
[2022-01-10] MEDS: CIPROFLOXACIN 0.3% EYE DROPS 5 ML BOTTLE ONE ×3 (10:50→11:00)
[2022-01-10] MEDS: TROPICAMIDE 1% OPHTH SOLN 15 ML BOTTLE ONE ×3 (10:50→11:00)
[2022-01-10] MEDS: CYCLOPENTOLATE 2% OPHTH SOLN 2 ML BOTTLE ONE ×3 (10:50→11:00)
[2022-01-10] MEDS ORDERED: CARBACHOL 0.01% INTRA-OCULAR 1.5 ML VIAL ONE (11:22)
[2022-01-10] MEDS ORDERED: TETRACAINE 0.5% OPHTH SOLN 2 ML BOTTLE ONE (11:22)
[2022-01-10] MEDS ORDERED: PHENYLEPHRINE/KETOROLAC 4 ML VIAL IO ONE (11:22)
[2022-01-10] MEDS ORDERED: BSS (NA/CA/MG/K) BALANCED SALT SOLUTION OPHTH SOLN 15 ML BOTTLE ONE (11:22)
[2022-01-10] MEDS ORDERED: NEO/POLYMYX B SULF/DEXAMETH OPHTHALMIC 5ML BOTTLE ONE (11:22)
[2022-01-10] MEDS ORDERED: MIDAZOLAM HCL 2 MG/2 ML SINGLE DOSE VIAL ONE (12:18)
[2022-01-10 13:34] VITALS: BP 120/62; PULSE 64; RESP 16
[2022-01-10 13:36] VITALS: TEMP 97.8
== END 2022-01-10 13:36 | disposition home or self-care (01) ==
LOC: FASU 10:24
PROVIDERS: ATTEND Ophthalmology
PROC: 08RJ3JZ Replacement of Right Lens with Synthetic Substitute, Percutaneous Approach (ICD-10-PCS; principal; 2022-01-10 12:23)
DX: H26.8 Other specified cataract (principal)
CPT/HCPCS: 66984; V2632; J1097

== ENCOUNTER 2022-02-12 07:58 | Emergency (ER) | payer OTHER ==
[2022-02-12 08:03] VITALS: BP 150/66; PULSE 57; RESP 20; TEMP 98.7; BMI 29.5
[2022-02-12] MEDS ORDERED: LIDO 2%/EPI 1:200000 PRESRVFRE (20 ML SDVIAL) ONE (08:05)
== END 2022-02-12 08:57 | disposition home or self-care (01) ==
LOC: FER 07:58
PROC: 0HQ8XZZ Repair Buttock Skin, External Approach (ICD-10-PCS; principal; 2022-02-12)
DX: S31.821A Laceration without foreign body of left buttock, initial encounter (principal); W26.8XXA Contact with other sharp object(s), not elsewhere classified, initial encounter
CPT/HCPCS: 99282-25

== ENCOUNTER 2022-12-10 09:21 | Emergency (ER) | payer OTHER ==
[2022-12-10 09:32] VITALS: RESP 15; TEMP 98.2; BMI 29.8
[2022-12-10 10:25] LABS: INR 1.16 (0.83-1.09); PROTHROMBIN TIME (PATIENT) 13.4 SEC (9.7-13.0)
[2022-12-10 10:37] LABS: ALBUMIN 4.1 g/dl (3.4-5.0); BLOOD UREA NITROGEN 21.8 mg/dl (7-18); CALCIUM 9.1 mg/dl (8.5-10.1); CREATININE 1.2 mg/dl (0.6-1.3); MAGNESIUM 2.1 mg/dL (1.8-2.4); PHOSPHOROUS 3.9 (2.5-4.9); POTASSIUM 4.4 mmol/L (3.5-5.1); SGOT/AST 16.1 U/L (15-37); SGPT/ALT 12.5 U/L (7-52); TOT PROT 5.8 g/dl (6.4-8.2)
[2022-12-10 10:39] LABS: HEMATOCRIT 41.1 % (35.4-49); HEMOGLOBIN 13.7 G/dL (11.7-16.9); MCHC 33.4 g/dl (32.0-35.9); MEAN CELL VOLUME 101.9 fl (80-96); MEAN PLT VOLUME 8.5 fl (7.5-11.1); PLATELET COUNT 175.5 10^3/uL (134-434); RBC 4.03 10^6/uL (4.00-5.60); RDW 14.1 % (11.9-15.9); WHITE BLOOD COUNT 5.1 10^3/uL (4.0-10.8)
[2022-12-10 11:10] LABS: PLATELET ESTIMATE ADEQUATE
[2022-12-10 11:53] VITALS: BP 131/70; PULSE 82
[2022-12-10 14:43] LABS: BILIRUBIN,TOTAL 0.4 mg/dL (0.2-1)
== END 2022-12-10 11:53 | disposition home or self-care (01) ==
LOC: FER 09:21
DX: R42 Dizziness and giddiness (principal); R00.0 Tachycardia, unspecified; Z20.822 Contact with and (suspected) exposure to COVID-19
CPT/HCPCS: 0241U-QW; 36415; 70450-TC; 71045-TC-FY; 80053; 81003; 83735; 83880; 84100; 84484; 85027; 85610; 93005; 99285-25